=== PATIENT | female | born 1990 | race Caucasian/White ===

== ENCOUNTER 2016-08-10 20:18 | Emergency (ER) | payer OTHER ==
[~2016-08-10 20:18] MED LIST: CEPH-264 PO
[2016-08-10 21:17] LABS: BILIRUBIN,URINE NEGATIVE (NEG); GLUCOSE,URINE NEGATIVE (NEG); NITRITE,URINE NEGATIVE (NEG); PH,URINE 6.5; PROTEIN,URINE NEGATIVE (NEG-TRACE)
[2016-08-10 21:26] LABS: BACTERIA,URINE FEW /HPF (0-FEW); RBC,URINE 0 /HPF (0-2); SQUAMOUS EPITHELIAL CELL,UR MANY /LPF; WBC,URINE 0 /HPF (0-4)
[2016-08-10] MEDS ORDERED: IV NORMAL SALINE 1000ML BAG 1,000 ML IV ONE (21:30)
[2016-08-10] MEDS ORDERED: KETOROLAC TROMETHAMINE 30 MG/ML SYRINGE. IV ONE (21:30)
[2016-08-10] MEDS ORDERED: ONDANSETRON PF 4 MG/2 ML VIAL. IV ONE (21:30)
[2016-08-10 21:41] LABS: BASO # 0.1 x10^3/uL (0.0-0.2); BASO % 1 % (0-3); EOS % 2 % (0-3); HEMATOCRIT 37.1 % (36.0-47.0); HEMOGLOBIN 12.1 g/dL (12.0-15.5); LYMPH # 3.5 x10^3/uL (1.0-4.8); LYMPH % 33 % (24-48); MEAN CORPUSCULAR HEMOGLOBIN 27 pg (25-35); MEAN CORPUSCULAR HGB CONC 33 g/dL (31-37); MEAN CORPUSCULAR VOLUME 82 fL (79-100); MONO % 9 % (0-9); NEUT % 55 % (31-73); PLATELET COUNT 296 x10^3/uL (140-400); RED BLOOD COUNT 4.52 x10^6/uL (3.50-5.40); RED CELL DISTRIBUTION WIDTH 15.7 % (11.5-14.5); WHITE BLOOD COUNT 10.5 x10^3/uL (4.0-11.0)
[2016-08-10 21:54] LABS: CALCIUM 8.9 mg/dL (8.5-10.1); CREATININE 0.8 mg/dL (0.6-1.0); POTASSIUM 3.9 mmol/L (3.5-5.1)
--- NOTE | 2016-08-10 22:04 | RAD ---
PROCEDURE CT abdomen and pelvis without intravenous contrast. HISTORY Severe right flank pain for [address] of the abdomen and pelvis was performed without intravenous or oral contrast. Exposure: One or more of the following individualized dose reduction techniques were utilized for this examination: 1. Automated exposure control. 2. Adjustment of the mA and/or kV according to patient size. 3. Use of iterative reconstruction technique. COMPARISON CT abdomen pelvis from this [facility] August 03, 2016. FINDINGS Evaluation of solid organs is limited by lack of intravenous contrast. Evaluation of enteric structures may be limited by lack of oral contrast. Liver, spleen, pancreas, gallbladder, and bilateral adrenal glands are unremarkable. Bilateral kidneys and ureters free of stone or obstruction. No bowel obstruction or inflammation is identified. Appendix is without inflammation. Urinary bladder is unremarkable. Uterus is unremarkable. Right ovary demonstrates 3.4 centimeter cyst. IMPRESSION 1. No acute inflammatory process identified in the abdomen or pelvis. No evidence of urinary stone. 2. Right ovarian cyst measuring 3.4 centimeters. If there is concern for torsion, pelvic ultrasound could be performed. Electronically signed by: Sherwin Osborn MD (Aug 10, 2016 22:02:29)
[2016-08-10 22:32] VITALS: BP 110/60
--- NOTE | 2016-08-10 22:38 | PHYS DOC ---
Past Medical History Past Medical History: No Pertinent History Past Surgical History: , Other Additional Past Surgical Histo: [place] teeth removed. Alcohol Use: None Drug Use: None Adult General Chief Complaint Chief Complaint: ABDOMINAL PAIN HPI HPI 26-year-old female who's had worsening right-sided flank pain for the last week that does radiate somewhat into her right lower quadrant. She denies any dysuria or hematuria. She states she vomited multiple times today and this is what concerned her. She states she has history of 1 urinary stone in the past that pain felt different than this pain. She denies any vaginal bleeding. She raters her pain a 7 out of 10 localized primarily to the right flank. Review of Systems Review of Systems Constitutional: Denies fever or chills [] Eyes: Denies change in visual acuity, redness, or eye pain [] HENT: Denies nasal congestion or sore throat [] Respiratory: Denies cough or shortness of breath [] Cardiovascular: No additional information not addressed in HPI [] GI: Denies abdominal pain, nausea, vomiting, bloody stools or diarrhea [] : Denies dysuria or hematuria [] Musculoskeletal: Denies back pain or joint pain [] Integument: Denies rash or skin lesions [] Neurologic: Denies headache, focal weakness or sensory changes [] Endocrine: Denies polyuria or polydipsia [] Current Medications Current Medications Current Medications Medications (Trade) Dose Ordered Sig/[facility] Start Time Stop Time Status Last Admin Dose Admin Fentanyl Citrate (Fentanyl 2ml Vial) 50 mcg 1X ONCE 08/10/16 23:00 08/10/16 23:01 DC 08/10/16 22:46 50 MCG Ketorolac Tromethamine (Toradol) 30 mg 1X ONCE 08/10/16 21:30 08/10/16 21:31 DC 08/10/16 21:52 30 MG Ondansetron HCl (Zofran) 4 mg 1X ONCE 08/10/16 21:30 08/10/16 21:31 DC 08/10/16 21:51 4 MG Sodium Chloride (Iv Sodium Chloride 0.9% 1000ml Bag) 1,000 ml @ 1,000 mls/hr 1X ONCE 08/10/16 21:30 08/10/16 22:29 DC 08/10/16 21:50 1,000 MLS/HR Allergies Allergies Allergies Coded Allergies Type Severity Reaction Last Updated Verified adhesive Allergy Intermediate REDNESS, RASH 12/17/15 Yes Physical Exam Physical Exam Constitutional: Well developed, well nourished, no acute distress, non-toxic appearance. [] HENT: Normocephalic, atraumatic, bilateral external ears normal, oropharynx moist, no oral exudates, nose normal. [] Eyes: PERRLA, EOMI, conjunctiva normal, no discharge. [] Neck: Normal range of motion, no tenderness, supple, no stridor. [] Cardiovascular:Heart rate regular rhythm, no murmur [] Lungs & Thorax: Bilateral breath sounds clear to auscultation [] Abdomen: Bowel sounds normal, soft, RLQ tenderness, no masses, no pulsatile masses. [] Skin: Warm, dry, no erythema, no rash. [] Back: No tenderness, right CVA tenderness. [] Extremities: No tenderness, no cyanosis, no clubbing, ROM intact, no edema. [] Neurologic: Alert and oriented X 3, normal motor function, normal sensory function, no focal deficits noted. [] Psychologic: Affect normal, judgement normal, mood normal. [] Current Patient Data Vital Signs Vital Signs Date Time Temp Pulse Resp B/P Pulse Ox O2 Delivery O2 Flow Rate FiO2 08/10/16 22:46 15 97 08/10/16 22:32 66 110/60 Room Air 08/10/16 20:28 97.6 97.6 Lab Values Laboratory Tests Test 08/10/16 20:15 08/10/16 20:48 08/10/16 21:08 POC Urine HCG, Qualitative Hcg negative (Negative) White Blood Count 10.5x10^3/uL (4.0-11.0) Red Blood Count 4.52x10^6/uL (3.50-5.40) Hemoglobin 12.1g/dL (12.0-15.5) Hematocrit 37.1% (36.0-47.0) Mean Corpuscular Volume 82fL (79-100) Mean Corpuscular Hemoglobin 27pg (25-35) Mean Corpuscular Hemoglobin Concent 33g/dL (31-37) Red Cell Distribution Width 15.7% (11.5-14.5) H Platelet Count 296x10^3/uL (140-400) Neutrophils (%) (Auto) 55% (31-73) Lymphocytes (%) (Auto) 33% (24-48) Monocytes (%) (Auto) 9% (0-9) Eosinophils (%) (Auto) 2% (0-3) Basophils (%) (Auto) 1% (0-3) Neutrophils # (Auto) 5.8x10^3uL (1.8-7.7) Lymphocytes # (Auto) 3.5x10^3/uL (1.0-4.8) Monocytes # (Auto) 1.0x10^3/uL (0.0-1.1) Eosinophils # (Auto) 0.3x10^3/uL (0.0-0.7) Basophils # (Auto) 0.1x10^3/uL (0.0-0.2) Sodium Level 144mmol/L (136-145) Potassium Level 3.9mmol/L (3.5-5.1) Chloride Level 107mmol/L (98-107) Carbon Dioxide Level 25mmol/L (21-32) Anion Gap 12 (6-14) Blood Urea Nitrogen 11mg/dL (7-20) Creatinine 0.8mg/dL (0.6-1.0) Estimated GFR (Cockcroft-Gault) 86.0 Glucose Level 87mg/dL (70-99) Calcium Level 8.9mg/dL (8.5-10.1) Urine Collection Type Void Urine Color Yellow Urine Clarity Cloudy Urine pH 6.5 Urine Specific [place] 1.025 Urine Protein Negativemg/dL (NEG-TRACE) Urine Glucose (UA) Negativemg/dL (NEG) Urine Ketones (Stick) Negativemg/dL (NEG) Urine Blood Negative (NEG) Urine Nitrite Negative (NEG) Urine Bilirubin Negative (NEG) Urine Urobilinogen Dipstick 1.0mg/dL (0.2 mg/dL) Urine Leukocyte Esterase Negative (NEG) Urine RBC 0/HPF (0-2) Urine WBC 0/HPF (0-4) Urine Squamous Epithelial Cells Many/LPF Urine Bacteria Few/HPF (0-FEW) Urine Mucus Marked/LPF Laboratory Tests 08/10/16 20:48 Laboratory Tests 08/10/16 20:48 EKG EKG [] Radiology/Procedures Radiology/Procedures CT of the abdomen/pelvis without contrast demonstrated the following: Evaluation of solid organs is limited by lack of intravenous contrast. Evaluation of enteric structures may be limited by lack of oral contrast. Liver, spleen, pancreas, gallbladder, and bilateral adrenal glands are unremarkable. Bilateral kidneys and ureters free of stone or obstruction. No bowel obstruction or inflammation is identified. Appendix is without inflammation. Urinary bladder is unremarkable. Uterus is unremarkable. Right ovary demonstrates 3.4 centimeter cyst. Transvaginal OB ultrasound demonstrates the following: FINDINGS Uterus measures 7.7 centimeters in length. No uterine masses are identified. Endometrial thickness is 4 millimeters, within normal limits. The right ovary measures 3.4 x 3.8 x 3.6 centimeters and demonstrates 3.2 centimeter cyst. Left ovary measures 2.2 x 3.5 x 2.2 centimeters and is unremarkable. Both ovaries demonstrate normal vascular flow upon Doppler interrogation and are without evidence of torsion. IMPRESSION Functional right ovarian cyst. No evidence of ovarian torsion. Course & Med Decision Making Course & Med Decision Making Pertinent Labs and Imaging studies reviewed. (See chart for details) 26-year-old female has a CT of her abdomen and pelvis is negative for any acute abnormality other than a right ovarian cyst. They are recommending a pelvic ultrasound further clarify this and this will be ordered. Her laboratory workup is unremarkable. Her pain is not controlled with Toradol and I ordered her fentanyl. She has not actively vomited while here in the department. Her laboratory workup is unremarkable. Her transvaginal ultrasound demonstrates continued demonstration of her right ovarian cyst with no evidence of acute torsion. I will be discharging her with a course of [place] and Zofran for ovarian cyst pain with instruction to follow up with her primary doctor in the next 2-3 days for symptom resolution. Dragon Disclaimer Dragon Disclaimer This electronic medical record was generated, in whole or in part, using a voice recognition dictation system. Departure Departure Impression: Primary Impression: Abdominal pain Additional Impression: Ovarian cyst Disposition: 01 HOME, SELF-CARE Admitting Physician: Other Condition: STABLE Referrals: NO PCP (PCP) Patient Instructions: Ovarian Cyst, [id number] Additional Instructions: Please take your pain medication as prescribed and follow up with your primary doctor in the next 2-3 days. Return to the ER if you develop any worsening of your symptoms. Scripts Ondansetron Hcl (Zofran)4 Mg Tablet4 Mg PO BID PRN NAUSEA/VOMITING #10 TAB Prov:ARABELLA MÁRQUEZ DO 08/10/16 Hydrocodone/Apap 5-325 ([place] 5-325 Tablet)1 Each Tablet1 Tab PO PRN Q6HRS PRN PAIN #10 TAB Prov:ARABELLA MÁRQUEZ DO 08/10/16 Problem Qualifiers ARABELLA MÁRQUEZ DO Aug 10, 2016 22:38
[2016-08-10] MEDS ORDERED: FENTANYL PF 100 MCG/2 ML VIAL. IV ONE (23:00)
--- NOTE | 2016-08-10 23:24 | RAD ---
PROCEDURE Pelvis ultrasound. HISTORY Right lower quadrant pain for 1 week. Four months . TECHNIQUE Transabdominal imaging was performed. COMPARISON CT abdomen pelvis August 10, 2016. FINDINGS Uterus measures 7.7 centimeters in length. No uterine masses are identified. Endometrial thickness is 4 millimeters, within normal limits. The right ovary measures 3.4 x 3.8 x 3.6 centimeters and demonstrates 3.2 centimeter cyst. Left ovary measures 2.2 x 3.5 x 2.2 centimeters and is unremarkable. Both ovaries demonstrate normal vascular flow upon Doppler interrogation and are without evidence of torsion. IMPRESSION Functional right ovarian cyst. No evidence of ovarian torsion. Electronically signed by: Sherwin Osborn MD (Aug 10, 2016 23:22:55)
[2016-08-10] MEDS ORDERED: ONDA4TAB7 PO (23:35)
[2016-08-10] MEDS ORDERED: HYDR-971 PO (23:35)
== END 2016-08-11 00:10 | disposition home or self-care (01) ==
LOC: ER 20:18
DX: N83.201 Unspecified ovarian cyst, right side (principal); Z98.890 Other specified postprocedural states; Z88.8 Allergy status to other drugs, medicaments and biological substances
CPT/HCPCS: 36415; 74176; 76856; 80048; 81001; 81025; 85027; 96361; 96374; 96375; 99285; J1885; J2405; J3010; J7030

== ENCOUNTER → 2016-09-02 | Outpatient (CLI) | payer OTHER ==
[2016-08-10 22:32] VITALS: BP 110/60
[~2016-09-02] MED LIST changes: +HYDR-971 PO; +ONDA4TAB7 PO
--- NOTE | 2016-09-02 12:20 | KCIC ---
PROCEDURE MR of the right hip HISTORY Right hip pain for a few months. No known injury. COMPARISON None TECHNIQUE Routine multiplanar sequences are obtained. FINDINGS No bone lesion or acute fracture. No marrow edema. No femoral head osteonecrosis. No evidence of a labral tear. No acute articular cartilage defect. No significant joint effusion. No evidence of osteoarthritis. The gluteus minimus and gluteus medius tendon attachments are intact. The hamstring tendon attachment is intact. Iliopsoas tendon intact. No acute muscle injury. No soft tissue fluid collection. Several small right inguinal lymph nodes are identified up to 15 mm diameter. Diagnostically limited large [id number] coronal survey sequence demonstrates no acute findings at the contralateral hip or elsewhere. IMPRESSION No evidence of acute abnormality or internal derangement. Electronically signed by: Sherwin Redman MD (Sep 02, 2016 12:18:47)
== END | disposition home or self-care (01) ==
LOC: KCIC MRI 10:54
PROVIDERS: ATTEND Family Medicine
DX: M25.551 Pain in right hip (principal)
CPT/HCPCS: 73721

== ENCOUNTER 2016-10-24 20:37 | Emergency (ER) | payer OTHER ==
[~2016-10-24] VITALS: Ht 160 cm; Wt 95.3 kg
[2016-10-24] MEDS ORDERED: IV NORMAL SALINE 1000ML BAG 1,000 ML IV SCH (21:31)
--- NOTE | 2016-10-24 21:36 | PHYS DOC ---
Past Medical History Past Medical History: No Pertinent History Past Surgical History: , Other Additional Past Surgical Histo: [place] teeth removed. Alcohol Use: None Drug Use: None Adult General Chief Complaint Chief Complaint: ABDOMINAL PAIN HPI HPI Patient is a 26 year old female who presents with complaint of abdominal pain and vomiting. Patient states her symptoms have been present for the past week. Patient states that her pain is intermittent, sharp, and currently rates it as 8 out of 10. Patient states that she took Tylenol earlier today with no relief in symptoms. The patient states that she has had 6 months ago but no other abdominal surgeries. Patient denies any significant medical problems. Patient denies any associated fevers. Patient states that she has had difficulty eating due to vomiting. Patient states that she has been tolerating liquids and fruit states she is unable to tolerate protein or vegetables. Patient states that her pain is localized to her lower abdomen and radiates bilaterally. Patient does admit to increased frequency of urination. Review of Systems Review of Systems Constitutional: Denies fever or chills [] Eyes: Denies change in visual acuity, redness, or eye pain [] HENT: Denies nasal congestion or sore throat [] Respiratory: Denies cough or shortness of breath [] Cardiovascular: Denies chest pain or edema [] GI: Abdominal pain, nausea, vomiting, denies bloody stools or diarrhea [] : Urinary frequency, denies dysuria [] Musculoskeletal: Denies back pain or joint pain [] Integument: Denies rash or skin lesions [] Neurologic: Denies headache, focal weakness or sensory changes [] Current Medications Current Medications Current Medications Medications (Trade) Dose Ordered Sig/[facility] Start Time Stop Time Status Last Admin Dose Admin Famotidine (Pepcid) 20 mg 1X ONCE 10/24/16 22:00 10/24/16 22:01 DC 10/24/16 21:48 20 MG Fentanyl Citrate (Fentanyl 2ml Vial) 50 mcg PRN Q15MIN PRN 10/24/16 21:45 10/25/16 21:44 10/24/16 21:47 50 MCG Ondansetron HCl (Zofran) 4 mg 1X ONCE 10/24/16 22:00 10/24/16 22:01 DC 10/24/16 21:47 4 MG Sodium Chloride 1,000 ml @ 1,000 mls/hr Q1H 10/24/16 21:31 10/24/16 22:30 DC 10/24/16 21:48 1,000 MLS/HR Allergies Allergies Allergies Coded Allergies Type Severity Reaction Last Updated Verified adhesive Allergy Intermediate REDNESS, RASH 12/17/15 Yes Physical Exam Physical Exam Constitutional: Alert, obese, afebrile, no acute distress. [] HENT: Normocephalic, atraumatic, bilateral external ears normal, oropharynx moist, no oral exudates, nose normal. [] Eyes: PERRLA, EOMI, conjunctiva normal, no discharge. [] Neck: Normal range of motion, no tenderness, supple, no stridor. [] Cardiovascular:Heart rate regular rhythm, no murmur [] Lungs & Thorax: Bilateral breath sounds clear to auscultation [] Abdomen: Bowel sounds normal, soft, suprapubic tenderness to palpation, no guarding or rebound tenderness, no masses, no pulsatile masses. [] Skin: Warm, dry, no erythema, no rash. [] Back: No tenderness, no CVA tenderness. [] Extremities: No tenderness, no cyanosis, no clubbing, ROM intact, no edema. [] Neurologic: Alert and oriented X 3, normal motor function, normal sensory function, no focal deficits noted. [] Current Patient Data Vital Signs Vital Signs Date Time Temp Pulse Resp B/P (MAP) Pulse Ox O2 Delivery O2 Flow Rate FiO2 10/24/16 20:45 98.3 72 16 139/69 (92) 100 Room Air 98.3 Lab Values Laboratory Tests Test 10/24/16 19:56 10/24/16 20:45 10/24/16 21:10 POC Urine HCG, Qualitative Hcg negative (Negative) Urine Collection Type Unknown Urine Color Yellow Urine Clarity Clear Urine pH 6.5 Urine Specific [place] 1.020 Urine Protein Negative mg/dL (NEG-TRACE) Urine Glucose (UA) Negative mg/dL (NEG) Urine Ketones (Stick) Negative mg/dL (NEG) Urine Blood Negative (NEG) Urine Nitrite Negative (NEG) Urine Bilirubin Negative (NEG) Urine Urobilinogen Dipstick 1.0 mg/dL (0.2 mg/dL) Urine Leukocyte Esterase Negative (NEG) Urine RBC 0 /HPF (0-2) Urine WBC 0 /HPF (0-4) Urine Squamous Epithelial Cells Mod /LPF Urine Bacteria Few /HPF (0-FEW) Urine Mucus Marked /LPF White Blood Count 10.3 x10^3/uL (4.0-11.0) Red Blood Count 4.27 x10^6/uL (3.50-5.40) Hemoglobin 12.3 g/dL (12.0-15.5) Hematocrit 36.0 % (36.0-47.0) Mean Corpuscular Volume 84 fL (79-100) Mean Corpuscular Hemoglobin 29 pg (25-35) Mean Corpuscular Hemoglobin Concent 34 g/dL (31-37) Red Cell Distribution Width 15.4 % (11.5-14.5) H Platelet Count 288 x10^3/uL (140-400) Neutrophils (%) (Auto) 54 % (31-73) Lymphocytes (%) (Auto) 35 % (24-48) Monocytes (%) (Auto) 8 % (0-9) Eosinophils (%) (Auto) 2 % (0-3) Basophils (%) (Auto) 1 % (0-3) Neutrophils # (Auto) 5.6 x10^3uL (1.8-7.7) Lymphocytes # (Auto) 3.6 x10^3/uL (1.0-4.8) Monocytes # (Auto) 0.8 x10^3/uL (0.0-1.1) Eosinophils # (Auto) 0.2 x10^3/uL (0.0-0.7) Basophils # (Auto) 0.1 x10^3/uL (0.0-0.2) Sodium Level 143 mmol/L (136-145) Potassium Level 4.0 mmol/L (3.5-5.1) Chloride Level 106 mmol/L (98-107) Carbon Dioxide Level 27 mmol/L (21-32) Anion Gap 10 (6-14) Blood Urea Nitrogen 12 mg/dL (7-20) Creatinine 0.9 mg/dL (0.6-1.0) Estimated GFR (Cockcroft-Gault) 75.1 BUN/Creatinine Ratio 13 (6-20) Glucose Level 92 mg/dL (70-99) Calcium Level 8.9 mg/dL (8.5-10.1) Total Bilirubin 0.2 mg/dL (0.2-1.0) Aspartate Amino Transferase (AST) 13 U/L (15-37) L Alanine Aminotransferase (ALT) 22 U/L (14-59) Alkaline Phosphatase 69 U/L (46-116) Total Protein 7.8 g/dL (6.4-8.2) Albumin 3.4 g/dL (3.4-5.0) Albumin/Globulin Ratio 0.8 (1.0-1.7) L Lipase 158 U/L (73-393) Laboratory Tests 10/24/16 21:10 Laboratory Tests 10/24/16 21:10 Microbiology 10/24/16 Wet Prep - Final, Complete EKG EKG Not performed [] Radiology/Procedures Radiology/Procedures Two-view abdominal x-rays interpreted by me: Nonobstructive bowel gas pattern, retained gas through colon, No free air under the diaphragm [] Course & Med Decision Making Course & Med Decision Making Pertinent Labs and Imaging studies reviewed. (See chart for details) The patient's emergency department workup is unremarkable at this time. Patient was treated with IV fluids, fentanyl, and Zofran. Spoke with the patient regarding results of testing and lack of findings consistent with acute surgical abdomen at this time. The patient will be referred to Dr. Castillo of gastroenterology for follow-up in one to 2 weeks if symptoms are not improving. Patient will be discharged with prescriptions for Bentyl, ibuprofen, Pepcid, and Zofran. Advised return emergency department for any worsening symptoms. Patient voiced understanding and in agreement with treatment plan. Dragon Disclaimer Dragon Disclaimer This electronic medical record was generated, in whole or in part, using a voice recognition dictation system. Departure Departure Impression: Primary Impression: Abdominal pain Additional Impression: Nausea & vomiting Disposition: 01 HOME, SELF-CARE Condition: IMPROVED Referrals: NO PCP (PCP) Patient Instructions: Abdominal Pain (Nonspecific), Nausea and Vomiting Additional Instructions: Follow-up in 3-4 days with your primary doctor for reevaluation. Scheduled appointment in one to [address] Castillo of gastroenterology if symptoms do not resolve. Return to the emergency department for any worsening symptoms. Scripts Dicyclomine Hcl (BENTYL) 10 Mg Capsule 1 CAP PO TID, #30 CAP 0 Refills Prov: CALVIN TAVERAS MD 10/24/16 Famotidine (PEPCID) 20 Mg Tablet 20 MG PO BID, #30 TAB Prov: CALVIN TAVERAS MD 10/24/16 Ondansetron (ZOFRAN ODT) 4 Mg Tab.rapdis 1 TAB SL Q8HRS Y for NAUSEA/VOMITING, #15 TAB Prov: CALVIN TAVERAS MD 10/24/16 Ibuprofen (IBUPROFEN) 600 Mg Tablet 600 MG PO Q6HRS Y for PAIN, #30 TAB Prov: CALVIN TAVERAS MD 10/24/16 Problem Qualifiers Primary Impression: Abdominal pain Abdominal location: lower abdomen, unspecified Qualified Codes: R10.30 - Lower abdominal pain, unspecified Additional Impression: Nausea & vomiting Vomiting type: unspecified Vomiting Intractability: non-intractable Qualified Codes: R11.2 - Nausea with vomiting, unspecified CALVIN TAVERAS MD October 24, 2016 21:36
[2016-10-24 21:41] LABS: BILIRUBIN,URINE NEGATIVE (NEG); GLUCOSE,URINE NEGATIVE (NEG); NITRITE,URINE NEGATIVE (NEG); PH,URINE 6.5; PROTEIN,URINE NEGATIVE (NEG-TRACE)
[2016-10-24] MEDS: fentaNYL PF VIAL 100 MCG/2 ML VIAL IV PRN ×2 (21:47→22:39)
[2016-10-24 21:49] LABS: BASO # 0.1 x10^3/uL (0.0-0.2); BASO % 1 % (0-3); EOS % 2 % (0-3); HEMOGLOBIN 12.3 g/dL (12.0-15.5); LYMPH # 3.6 x10^3/uL (1.0-4.8); LYMPH % 35 % (24-48); MEAN CORPUSCULAR HEMOGLOBIN 29 pg (25-35); MEAN CORPUSCULAR HGB CONC 34 g/dL (31-37); MEAN CORPUSCULAR VOLUME 84 fL (79-100); MONO % 8 % (0-9); NEUT % 54 % (31-73); PLATELET COUNT 288 x10^3/uL (140-400); RED BLOOD COUNT 4.27 x10^6/uL (3.50-5.40); RED CELL DISTRIBUTION WIDTH 15.4 % (11.5-14.5); WHITE BLOOD COUNT 10.3 x10^3/uL (4.0-11.0)
[2016-10-24 21:50] LABS: CALCIUM 8.9 mg/dL (8.5-10.1); CREATININE 0.9 mg/dL (0.6-1.0); GFR 75.1
[2016-10-24 21:55] LABS: BACTERIA,URINE FEW /HPF (0-FEW); RBC,URINE 0 /HPF (0-2); SQUAMOUS EPITHELIAL CELL,UR MOD /LPF; WBC,URINE 0 /HPF (0-4)
[2016-10-24 21:56] LABS: ALBUMIN 3.4 g/dL (3.4-5.0); ALBUMIN/GLOBULIN RATIO 0.8 (1.0-1.7); TOTAL BILIRUBIN 0.2 mg/dL (0.2-1.0); TOTAL PROTEIN 7.8 g/dL (6.4-8.2)
[2016-10-24] MEDS ORDERED: ONDANSETRON PF 4 MG/2 ML VIAL. IV ONE (22:00)
[2016-10-24] MEDS ORDERED: FAMOTIDINE 20 MG/2 ML VIAL IVP ONE (22:00)
[2016-10-24] MEDS ORDERED: IBUP-1007 PO (22:44)
[2016-10-24] MEDS ORDERED: FAMO-63 PO (22:44)
[2016-10-24] MEDS ORDERED: DICY10CA53 PO (22:44)
[2016-10-24] MEDS ORDERED: ONDA4TAB10 SL (22:44)
[2016-10-24 22:47] VITALS: BP 106/73
--- NOTE | 2016-10-25 07:56 | RAD ---
Indication abdominal pain. Supine and upright films of the abdomen were obtained. Note is made of a CT examination 08/10/2016. The visualized lung bases appear grossly clear. No free air is identified. The abdominal gas pattern is normal. There are calcifications in the left pelvis compatible with phleboliths. Visualized bony structures appear grossly intact. IMPRESSION: No acute or significant finding seen on plain films of the abdomen
== END 2016-10-24 23:05 | disposition home or self-care (01) ==
LOC: ER 20:37
DX: R10.30 Lower abdominal pain, unspecified (principal); R11.2 Nausea with vomiting, unspecified; Z91.048 Other nonmedicinal substance allergy status
CPT/HCPCS: 36415; 74020; 80053; 81001; 83690; 84703; 85027; 96361; 96374; 96375; 96376; 99285; J2405; J3010; J7030; Q0111; S0028; 81025

== ENCOUNTER 2016-11-20 22:02 | Emergency (ER) | payer OTHER ==
[~2016-11-20] VITALS: Ht 160 cm; Wt 95.3 kg
[~2016-11-20 22:02] MED LIST changes: +DICY10CA53 PO; +FAMO-63 PO; +IBUP-1007 PO; +ONDA4TAB10 SL
[2016-11-20 22:29] LABS: BILIRUBIN,URINE NEGATIVE (NEG); GLUCOSE,URINE NEGATIVE (NEG); NITRITE,URINE NEGATIVE (NEG); PROTEIN,URINE NEGATIVE (NEG-TRACE)
[2016-11-20 22:32] LABS: NEG OBC UR NEG; POS OBC UR POS
[2016-11-20 22:35] LABS: BACTERIA,URINE FEW /HPF (0-FEW); RBC,URINE 0 /HPF (0-2); SQUAMOUS EPITHELIAL CELL,UR MOD /LPF; WBC,URINE 0 /HPF (0-4)
[2016-11-20 22:37] LABS: BASO # 0.1 x10^3/uL (0.0-0.2); BASO % 1 % (0-3); EOS % 1 % (0-3); HEMATOCRIT 36.9 % (36.0-47.0); HEMOGLOBIN 11.9 g/dL (12.0-15.5); LYMPH # 3.1 x10^3/uL (1.0-4.8); LYMPH % 31 % (24-48); MEAN CORPUSCULAR HEMOGLOBIN 28 pg (25-35); MEAN CORPUSCULAR HGB CONC 32 g/dL (31-37); MEAN CORPUSCULAR VOLUME 86 fL (79-100); MONO % 10 % (0-9); NEUT % 57 % (31-73); PLATELET COUNT 281 x10^3/uL (140-400); RED BLOOD COUNT 4.32 x10^6/uL (3.50-5.40); WHITE BLOOD COUNT 10.2 x10^3/uL (4.0-11.0)
[2016-11-20 22:44] LABS: BARBITURATES NEG (NEG); BENZODIAZEPINES NEG (NEG); CANNABINOIDS NEG (NEG); COCAINE NEG (NEG); METHADONE NEG (NEG); OPIATES NEG (NEG); PHENCYCLIDINE NEG (NEG)
[2016-11-20 22:44] LABS: CALCIUM 8.5 mg/dL (8.5-10.1); CREATININE 0.8 mg/dL (0.6-1.0)
[2016-11-20 22:50] LABS: ALBUMIN 3.4 g/dL (3.4-5.0); ALBUMIN/GLOBULIN RATIO 0.8 (1.0-1.7); TOTAL BILIRUBIN 0.1 mg/dL (0.2-1.0); TOTAL PROTEIN 7.8 g/dL (6.4-8.2)
[2016-11-20] MEDS ORDERED: PROCHLORPERAZINE 10 MG/2 ML VIAL. IV ONE (23:00)
[2016-11-20] MEDS ORDERED: diphenhydrAMINE 50 MG/ML VIAL IVP ONE (23:00)
[2016-11-20] MEDS ORDERED: KETOROLAC 15 MG/ML VIAL. IV ONE (23:00)
[2016-11-20] MEDS ORDERED: IV NORMAL SALINE 1000ML BAG 1,000 ML IV SCH (23:00)
--- NOTE | 2016-11-20 23:20 | ED.ADGEN ---
Past Medical History Past Medical History: No Pertinent History Past Surgical History: , Other Additional Past Surgical Histo: [place] teeth removed. Alcohol Use: None Drug Use: None Adult General Chief Complaint Chief Complaint: HEADACHE HPI HPI Patient is a 26 year old woman, history of ovarian cysts, who presents to the emergency department with a complaint of frontal headache, and left lower quadrant abdominal pain. Patient states that his began earlier today. She states that she's taken 2 doses of acetaminophen at home without relief. She states that she's had similar headaches previously but not as persistent. Denies any vision changes, any weakness emesis or tingling, any nausea or vomiting, any neck pain, any injuries, any fevers or chills. Denies any urinary complaints. Does not feel like previous ovarian cyst type pain. She states that the pain is located the left lower quadrant, sharp and stabbing, has been intermittent. No history of surgeries, aside from a , last bowel was earlier today and was normal. Patient has her six-month old son present with her in the emergency department. Review of Systems Review of Systems Constitutional: Denies fever or chills. [] Eyes: Denies change in visual acuity. [] HENT: Denies nasal congestion or sore throat. [] Respiratory: Denies cough or shortness of breath. [] Cardiovascular: Denies chest pain or edema. [] GI: Denies abdominal pain, nausea, vomiting, bloody stools or diarrhea. [] : Denies dysuria. [] Musculoskeletal: Denies back pain or joint pain. [] Integument: Denies rash. [] Neurologic: Denies focal weakness or sensory changes. [] Headache, left lower quadrant abdominal pain. Endocrine: Denies polyuria or polydipsia. [] Lymphatic: Denies swollen glands. [] Psychiatric: Denies depression or anxiety. [] Current Medications Current Medications Current Medications Medications (Trade) Dose Ordered Sig/Shruthi Start Time Stop Time Status Last Admin Dose Admin Diphenhydramine HCl (Benadryl) 25 mg 1X ONCE 11/20/16 23:00 11/20/16 23:01 DC 11/20/16 23:00 25 MG Ketorolac Tromethamine (Toradol) 10 mg 1X ONCE 11/20/16 23:00 11/20/16 23:01 DC 11/20/16 23:01 10 MG Prochlorperazine Edisylate (Compazine) 10 mg 1X ONCE 11/20/16 23:00 11/20/16 23:01 DC 11/20/16 23:01 10 MG Sodium Chloride 1,000 ml @ 1,000 mls/hr Q1H 11/20/16 23:00 11/20/16 23:59 11/20/16 22:59 1,000 MLS/HR Allergies Allergies Allergies Coded Allergies Type Severity Reaction Last Updated Verified adhesive Allergy Intermediate REDNESS, RASH 12/17/15 Yes Physical Exam Physical Exam Constitutional: Well developed, well nourished, no acute distress, non-toxic appearance. [] HENT: Normocephalic, atraumatic, bilateral external ears normal, oropharynx moist, no oral exudates, nose normal. [] Eyes: PERRLA, EOMI, conjunctiva normal, no discharge. [] Neck: Normal range of motion, no tenderness, supple, no stridor. [] Cardiovascular:Heart rate regular rhythm, no murmur [] Lungs & Thorax: Bilateral breath sounds clear to auscultation [] Abdomen: Bowel sounds normal, soft, no tenderness, no masses, no pulsatile masses. [] Skin: Warm, dry, no erythema, no rash. [] Back: No tenderness, no CVA tenderness. [] Extremities: No tenderness, no cyanosis, no clubbing, ROM intact, no edema. [] Neurologic: Alert and oriented X 3, normal motor function, normal sensory function, no focal deficits noted. [] Psychologic: Affect normal, judgement normal, mood normal. [] Current Patient Data Vital Signs Vital Signs Date Time Temp Pulse Resp B/P (MAP) Pulse Ox O2 Delivery O2 Flow Rate FiO2 11/20/16 22:09 98.2 78 18 138/62 (87) 97 Room Air 98.2 Lab Values Laboratory Tests Test 11/20/16 22:10 11/20/16 22:15 Urine Collection Type Void Urine Color Yellow Urine Clarity Cloudy Urine pH 7.0 Urine Specific [place] 1.020 Urine Protein Negative mg/dL (NEG-TRACE) Urine Glucose (UA) Negative mg/dL (NEG) Urine Ketones (Stick) Negative mg/dL (NEG) Urine Blood Negative (NEG) Urine Nitrite Negative (NEG) Urine Bilirubin Negative (NEG) Urine Urobilinogen Dipstick 1.0 mg/dL (0.2 mg/dL) Urine Leukocyte Esterase Negative (NEG) Urine RBC 0 /HPF (0-2) Urine WBC 0 /HPF (0-4) Urine Squamous Epithelial Cells Mod /LPF Urine Amorphous Sediment Present /HPF Urine Bacteria Few /HPF (0-FEW) Urine Mucus Mod /LPF Urine Test Negative (NEG) Urine Opiates Screen Neg (NEG) Urine Methadone Screen Neg (NEG) Urine Barbiturates Neg (NEG) Urine Phencyclidine Screen Neg (NEG) Urine Amphetamine/Methamphetamine Neg (NEG) Urine Benzodiazepines Screen Neg (NEG) Urine Cocaine Screen Neg (NEG) Urine Cannabinoids Screen Neg (NEG) Urine Ethyl Alcohol Neg (NEG) White Blood Count 10.2 x10^3/uL (4.0-11.0) Red Blood Count 4.32 x10^6/uL (3.50-5.40) Hemoglobin 11.9 g/dL (12.0-15.5) L Hematocrit 36.9 % (36.0-47.0) Mean Corpuscular Volume 86 fL (79-100) Mean Corpuscular Hemoglobin 28 pg (25-35) Mean Corpuscular Hemoglobin Concent 32 g/dL (31-37) Red Cell Distribution Width 15.0 % (11.5-14.5) H Platelet Count 281 x10^3/uL (140-400) Neutrophils (%) (Auto) 57 % (31-73) Lymphocytes (%) (Auto) 31 % (24-48) Monocytes (%) (Auto) 10 % (0-9) H Eosinophils (%) (Auto) 1 % (0-3) Basophils (%) (Auto) 1 % (0-3) Neutrophils # (Auto) 5.8 x10^3uL (1.8-7.7) Lymphocytes # (Auto) 3.1 x10^3/uL (1.0-4.8) Monocytes # (Auto) 1.0 x10^3/uL (0.0-1.1) Eosinophils # (Auto) 0.1 x10^3/uL (0.0-0.7) Basophils # (Auto) 0.1 x10^3/uL (0.0-0.2) Sodium Level 140 mmol/L (136-145) Potassium Level 4.0 mmol/L (3.5-5.1) Chloride Level 105 mmol/L (98-107) Carbon Dioxide Level 26 mmol/L (21-32) Anion Gap 9 (6-14) Blood Urea Nitrogen 9 mg/dL (7-20) Creatinine 0.8 mg/dL (0.6-1.0) Estimated GFR (Cockcroft-Gault) 86.0 BUN/Creatinine Ratio 11 (6-20) Glucose Level 99 mg/dL (70-99) Calcium Level 8.5 mg/dL (8.5-10.1) Total Bilirubin 0.1 mg/dL (0.2-1.0) L Aspartate Amino Transferase (AST) 17 U/L (15-37) Alanine Aminotransferase (ALT) 27 U/L (14-59) Alkaline Phosphatase 72 U/L (46-116) Total Protein 7.8 g/dL (6.4-8.2) Albumin 3.4 g/dL (3.4-5.0) Albumin/Globulin Ratio 0.8 (1.0-1.7) L Lipase 152 U/L (73-393) Laboratory Tests 11/20/16 22:15 Laboratory Tests 11/20/16 22:15 Radiology/Procedures Radiology/Procedures Acute abdominal series: 3 view: Normal cardiopulmonary silhouette, no infiltrates, no effusions, no soft tissue or bone abdomen is identified. No free air. Patient with paucity of bowel gas, however noted to have stool throughout, with no evidence of dilated loops of bowel, air-fluid levels, or other evidence of obstruction or other abnormalities. As inserted by me. [] Course & Med Decision Making Course & Med Decision Making Pertinent Labs and Imaging studies reviewed. (See chart for details) Patient received IV fluids, Toradol, Compazine, and Benadryl in the emergency department. Laboratory studies and imaging does not reveal any evidence of concerning findings. On reevaluation, patient states she is feeling much better. Discussed with patient that her x-rays, also has no signs obstruction, are concerning for possible constipation, which could be contributory symptoms. We did discuss use of a high-fiber diet, and importance of stay well-hydrated. Patient voiced understanding and agreement with this plan. We discussed following up with her primary care provider, along with clear and detailed return instructions, and use of Fioricet. Patient voiced understanding and agreement with instructions and precautions. Discharged home with plan as above. Dragon Disclaimer Dragon Disclaimer This electronic medical record was generated, in whole or in part, using a voice recognition dictation system. Departure Impression: Primary Impression: Headache Additional Impressions: Constipation Abdominal pain Disposition: HOME, SELF-CARE Condition: IMPROVED Scripts Butalbital/Aspirin/Caffeine (FIORINAL 50-325-40 MG CAPSULE) 1 Each Capsule 1 EACH PO PRN Q6-8HRS Y for HEADACHE, #12 CAP Prov: SHAKIR LYN DO 11/20/16 Problem Qualifiers SHAKIR LYN DO Nov 20, 2016 23:20
[2016-11-20 23:30] VITALS: BP 111/58
[2016-11-20] MEDS ORDERED: BUTA1CAP31 PO (23:36)
--- NOTE | 2016-11-21 07:24 | RAD ---
Indication: Abdominal pain. Time of exam 2246 hours. No free air is identified. The bowel gas pattern is nonobstructed. No pathologic calcifications are seen. The lungs appear to be clear. Impression: No acute feature identified.
== END 2016-11-21 00:12 | disposition home or self-care (01) ==
LOC: ER 22:02
DX: R51 Headache (principal); K59.00 Constipation, unspecified; Z88.8 Allergy status to other drugs, medicaments and biological substances
CPT/HCPCS: 36415; 74022; 80053; 80305; 80320; 81001; 81025; 83690; 85027; 96361; 96374; 96375; 99285; J0780; J1200; J1885; J7030; G0481

== ENCOUNTER 2017-01-05 21:03 | Emergency (ER) | payer OTHER ==
[~2017-01-05] VITALS: Ht 160 cm; Wt 96.2 kg
[~2017-01-05 21:03] MED LIST changes: +BUTA1CAP31 PO
[2017-01-05 21:40] LABS: BILIRUBIN,URINE SMALL (NEG); GLUCOSE,URINE NEGATIVE (NEG); NITRITE,URINE NEGATIVE (NEG); PROTEIN,URINE NEGATIVE (NEG-TRACE)
[2017-01-05 21:50] LABS: BACTERIA,URINE MANY /HPF (0-FEW); RBC,URINE 0 /HPF (0-2); SQUAMOUS EPITHELIAL CELL,UR MANY /LPF; WBC,URINE OCC /HPF (0-4)
[2017-01-05] MEDS ORDERED: ONDANSETRON PF 4 MG/2 ML VIAL. ONE (21:55)
[2017-01-05] MEDS ORDERED: KETOROLAC TROMETHAMINE 30 MG/ML INJ. ONE (21:55)
[2017-01-05] MEDS ORDERED: ONDANSETRON PF 4 MG/2 ML VIAL. IV ONE (22:00)
[2017-01-05] MEDS ORDERED: KETOROLAC 15 MG/ML VIAL. IV ONE (22:00)
[2017-01-05] MEDS ORDERED: IV NORMAL SALINE 1000ML BAG 1,000 ML IV ONE (22:00)
[2017-01-05 22:01] LABS: BASO % 1 % (0-3); EOS % 1 % (0-3); HEMATOCRIT 38.3 % (36.0-47.0); HEMOGLOBIN 12.5 g/dL (12.0-15.5); LYMPH # 1.8 x10^3/uL (1.0-4.8); LYMPH % 28 % (24-48); MEAN CORPUSCULAR HEMOGLOBIN 28 pg (25-35); MEAN CORPUSCULAR HGB CONC 33 g/dL (31-37); MEAN CORPUSCULAR VOLUME 86 fL (79-100); MONO % 16 % (0-9); NEUT % 55 % (31-73); PLATELET COUNT 244 x10^3/uL (140-400); RED BLOOD COUNT 4.48 x10^6/uL (3.50-5.40); RED CELL DISTRIBUTION WIDTH 14.5 % (11.5-14.5); WHITE BLOOD COUNT 6.4 x10^3/uL (4.0-11.0)
[2017-01-05 22:11] LABS: CALCIUM 8.5 mg/dL (8.5-10.1); CREATININE 0.8 mg/dL (0.6-1.0); POTASSIUM 3.8 mmol/L (3.5-5.1)
[2017-01-05 22:17] LABS: ALBUMIN 3.5 g/dL (3.4-5.0); ALBUMIN/GLOBULIN RATIO 0.8 (1.0-1.7); TOTAL BILIRUBIN 0.1 mg/dL (0.2-1.0)
[2017-01-05 23:24] LABS: NEG OBC UR NEG; POS OBC UR POS
--- NOTE | 2017-01-05 23:59 | RAD ---
Indication: Left flank pain. Axial imaging through the abdomen and pelvis was performed without contrast. One or more of the following individualized dose reduction techniques were utilized for this examination: 1. Automated exposure control 2. Adjustment of the mA and/or kV according to patient size 3. Use of iterative reconstruction technique Comparison is made with prior exam from 08/10/2016. The lung bases are clear. There appears to be trace pericardial fluid present. No discrete liver mass is detected. The gallbladder is unremarkable. The pancreas and spleen are unremarkable. No adrenal mass is identified. No renal calculi or hydronephrosis is identified. The small and large bowel loops are normal caliber. There is a large amount of stool within the colon. There is no ascites. The bladder and uterus are unremarkable. IMPRESSION: 1. Trace pericardial fluid. 2. No evidence of urinary tract calculi or obstruction. 3. Moderate stool suggestive of constipation. Electronically signed by: Hermes Delgado MD (01/05/2017 11:56 PM) [facility]
--- NOTE | 2017-01-06 00:19 | PHYS DOC ---
Past Medical History Past Medical History: No Pertinent History Past Surgical History: Additional Past Surgical Histo: [place] teeth removed. Alcohol Use: Rarely Drug Use: None Adult General Chief Complaint Chief Complaint: ABDOMINAL PAIN HPI HPI Patient is a 26 year old female who presents here today complaining of abdominal pain and flank pain on the left side that's been on for quite a while. Patient reports no for at least a week. Patient reports that she has a history for ovarian cysts in the past. Patient reports that she saw her PCP today and told her that one of her cyst was a ruptured. Patient denies any fevers shakes chills. Patient reports she's had 3 episodes of vomiting today. Patient has any diarrhea. Patient denies any dysuria frequency urgency or vaginal discharge. Patient's last menstrual period was in October. She reports that the only surgery she's had the past with a . Patient denies any history of hypertension diabetes liver longer kidney problems. Patient does not smoke drink or do any drugs. Patient is not allergic to any medications. Patient reports she was able to eat earlier today without any difficulty. Denies any coffee-ground emesis or hematochezia. Patient denies any hematemesis or bright red blood per rectum. Patient's physical exam the ED significant for tenderness to palpation to her left lower quadrant and left flank. Patient has no rebound or guarding. Patient no psoas or obturator signs. Patient does not present with any signs or symptoms that will be consistent with an acute surgical abdomen. Review of systems: Constitutional: Denies fever or chills Eyes: Denies change in visual acuity, redness, or eye pain HENT: Denies nasal congestion or sore throat All other review systems are negative except as documented in the history of present illness portion. Physical exam: Constitutional: Well developed, well nourished, no acute distress, non-toxic appearance. HENT: Normocephalic, atraumatic, bilateral external ears normal, oropharynx moist, no oral exudates, nose normal. Eyes: PERRLA, EOMI, conjunctiva normal, no discharge. Neck: Normal range of motion, no tenderness, supple, no stridor Cardiovascular:Heart rate regular rhythm Lungs & Thorax: Bilateral breath sounds clear to auscultation Abdomen: Bowel sounds normal, soft, no tenderness, no masses, Skin: Warm, dry, no erythema, no rash. Back: No tenderness, no CVA tenderness. Extremities: No tenderness, no cyanosis, no clubbing, ROM intact, no edema. Neurologic: Alert and oriented X 3, normal motor function, normal sensory function, no focal deficits noted. Psychologic: Affect normal, judgement normal, mood normal. Patient is CT scan of her abdomen and pelvis did not reveal any acute pathology. There was no evidence of any hydronephrosis, kidney stones, bowel obstruction. There is a small amount of physiological fluid noted in the pelvis. Patient's CBC CMP and UA were unremarkable. While in the ER the patient was given a dose of Toradol and normal saline as well as Zofran. Patient's been resting in the ED without any further. Assessment and plan Abdominal pain without any peritoneal findings. Patient's clinically and hemodynamically stable. Patient's ER workup is unremarkable. Patient be discharged home with instructions to follow-up in the morning with her primary care physician. I have discussed with the patient that we will give her dose of Dulcolax here to assist her with her constipation and hopefully having a bowel movement might improve her pain. Current Medications Current Medications Current Medications Medications (Trade) Dose Ordered Sig/Shruthi Start Time Stop Time Status Last Admin Dose Admin Ketorolac Tromethamine (Toradol) 30 mg STK-MED ONCE 01/05/17 21:55 01/05/17 21:56 DC Ondansetron HCl (Zofran) 4 mg STK-MED ONCE 01/05/17 21:55 01/05/17 21:56 DC Sodium Chloride 1,000 ml @ 1,000 mls/hr 1X ONCE 01/05/17 22:00 01/05/17 22:59 DC 01/05/17 21:59 1,000 MLS/HR Allergies Allergies Allergies Coded Allergies Type Severity Reaction Last Updated Verified adhesive Allergy Intermediate REDNESS, RASH 12/17/15 Yes Current Patient Data Vital Signs Vital Signs Date Time Temp Pulse Resp B/P (MAP) Pulse Ox O2 Delivery O2 Flow Rate FiO2 01/05/17 23:44 68 18 100/60 (73) 99 Room Air 01/05/17 23:05 97.9 97.9 Lab Values Laboratory Tests Test 01/05/17 21:20 01/05/17 21:40 Urine Collection Type Unknown Urine Color Yellow Urine Clarity Clear Urine pH 6.0 Urine Specific [place] >=1.030 Urine Protein Negative mg/dL (NEG-TRACE) Urine Glucose (UA) Negative mg/dL (NEG) Urine Ketones (Stick) Negative mg/dL (NEG) Urine Blood Negative (NEG) Urine Nitrite Negative (NEG) Urine Bilirubin Small (NEG) Urine Urobilinogen Dipstick 1.0 mg/dL (0.2 mg/dL) Urine Leukocyte Esterase Negative (NEG) Urine RBC 0 /HPF (0-2) Urine WBC Occ /HPF (0-4) Urine Squamous Epithelial Cells Many /LPF Urine Bacteria Many /HPF (0-FEW) Urine Mucus Marked /LPF Urine Test Negative (NEG) White Blood Count 6.4 x10^3/uL (4.0-11.0) Red Blood Count 4.48 x10^6/uL (3.50-5.40) Hemoglobin 12.5 g/dL (12.0-15.5) Hematocrit 38.3 % (36.0-47.0) Mean Corpuscular Volume 86 fL (79-100) Mean Corpuscular Hemoglobin 28 pg (25-35) Mean Corpuscular Hemoglobin Concent 33 g/dL (31-37) Red Cell Distribution Width 14.5 % (11.5-14.5) Platelet Count 244 x10^3/uL (140-400) Neutrophils (%) (Auto) 55 % (31-73) Lymphocytes (%) (Auto) 28 % (24-48) Monocytes (%) (Auto) 16 % (0-9) H Eosinophils (%) (Auto) 1 % (0-3) Basophils (%) (Auto) 1 % (0-3) Neutrophils # (Auto) 3.5 x10^3uL (1.8-7.7) Lymphocytes # (Auto) 1.8 x10^3/uL (1.0-4.8) Monocytes # (Auto) 1.0 x10^3/uL (0.0-1.1) Eosinophils # (Auto) 0.1 x10^3/uL (0.0-0.7) Basophils # (Auto) 0.0 x10^3/uL (0.0-0.2) Sodium Level 141 mmol/L (136-145) Potassium Level 3.8 mmol/L (3.5-5.1) Chloride Level 104 mmol/L (98-107) Carbon Dioxide Level 27 mmol/L (21-32) Anion Gap 10 (6-14) Blood Urea Nitrogen 10 mg/dL (7-20) Creatinine 0.8 mg/dL (0.6-1.0) Estimated GFR (Cockcroft-Gault) 86.0 BUN/Creatinine Ratio 13 (6-20) Glucose Level 84 mg/dL (70-99) Calcium Level 8.5 mg/dL (8.5-10.1) Total Bilirubin 0.1 mg/dL (0.2-1.0) L Aspartate Amino Transferase (AST) 15 U/L (15-37) Alanine Aminotransferase (ALT) 27 U/L (14-59) Alkaline Phosphatase 70 U/L (46-116) Total Protein 8.0 g/dL (6.4-8.2) Albumin 3.5 g/dL (3.4-5.0) Albumin/Globulin Ratio 0.8 (1.0-1.7) L Laboratory Tests 01/05/17 21:40 Laboratory Tests 01/05/17 21:40 EKG EKG [] Radiology/Procedures Radiology/Procedures [] Course & Med Decision Making Course & Med Decision Making Pertinent Labs and Imaging studies reviewed. (See chart for details) [] Dragon Disclaimer Dragon Disclaimer This electronic medical record was generated, in whole or in part, using a voice recognition dictation system. Departure Departure Impression: Primary Impression: Abdominal pain Additional Impressions: Ovarian cyst Constipation Disposition: HOME, SELF-CARE Condition: IMPROVED Referrals: UNKNOWN PCP NAME (PCP) Patient Instructions: Abdominal Pain (Nonspecific), Constipation, Adult Additional Instructions: Please call your doctor in the morning for further evaluation and instruction regarding treatment and management of your abdominal pain. Your pain might be related to your constipation. Please increase her fiber intake. Problem Qualifiers ZENY MENDEZ MD Jan 06, 2017 00:19
[2017-01-06 00:38] VITALS: BP 93/54
[2017-01-06] MEDS ORDERED: BISACODYL 5 MG TABLET.DR. PO PRN (00:45)
[2017-01-06] MEDS ORDERED: BISACODYL 5 MG TABLET.DR. PO ONE (01:00)
== END 2017-01-06 00:35 | disposition home or self-care (01) ==
LOC: ER 21:03
DX: N83.209 Unspecified ovarian cyst, unspecified side (principal); K59.00 Constipation, unspecified; Z91.048 Other nonmedicinal substance allergy status
CPT/HCPCS: 36415; 74176; 80053; 81001; 81025; 85027; 87086; 96361; 96374; 99285; J1885; J7030

== ENCOUNTER 2017-02-12 23:00 | Emergency (ER) | payer OTHER ==
[~2017-02-12] VITALS: Ht 160 cm; Wt 97.5 kg
[2017-02-13] MEDS ORDERED: MORPHINE SULFATE 2 MG/ML DISP.SYRIN. IV/SQ PRN (00:15)
[2017-02-13 00:24] LABS: BASO # 0.1 x10^3/uL (0.0-0.2); BASO % 1 % (0-3); EOS % 2 % (0-3); HEMATOCRIT 39.6 % (36.0-47.0); HEMOGLOBIN 12.8 g/dL (12.0-15.5); LYMPH # 2.7 x10^3/uL (1.0-4.8); LYMPH % 31 % (24-48); MEAN CORPUSCULAR HEMOGLOBIN 28 pg (25-35); MEAN CORPUSCULAR HGB CONC 32 g/dL (31-37); MEAN CORPUSCULAR VOLUME 86 fL (79-100); MONO % 10 % (0-9); NEUT % 56 % (31-73); PLATELET COUNT 271 x10^3/uL (140-400); RED BLOOD COUNT 4.62 x10^6/uL (3.50-5.40); RED CELL DISTRIBUTION WIDTH 14.7 % (11.5-14.5); WHITE BLOOD COUNT 8.7 x10^3/uL (4.0-11.0)
[2017-02-13 00:26] LABS: BILIRUBIN,URINE NEGATIVE (NEG); GLUCOSE,URINE NEGATIVE (NEG); NITRITE,URINE NEGATIVE (NEG); PROTEIN,URINE NEGATIVE (NEG-TRACE); UROBILINOGEN,URINE 0.2 mg/dL (0.2 mg/dL)
[2017-02-13] MEDS ORDERED: IV NORMAL SALINE 1000ML BAG 1,000 ML IV SCH (00:30)
[2017-02-13] MEDS ORDERED: ONDANSETRON PF 4 MG/2 ML VIAL. IV ONE (00:30)
[2017-02-13 00:31] LABS: ANION GAP 8 (6-14); BLOOD UREA NITROGEN 13 mg/dL (7-20); CALCIUM 9.2 mg/dL (8.5-10.1); CARBON DIOXIDE 27 mmol/L (21-32); CHLORIDE 105 mmol/L (98-107); CREATININE 0.8 mg/dL (0.6-1.0); GLUCOSE 110 mg/dL (70-99); POTASSIUM 3.8 mmol/L (3.5-5.1); SODIUM 140 mmol/L (136-145)
[2017-02-13 00:32] LABS: BACTERIA,URINE 0 /HPF (0-FEW); RBC,URINE 20-40 /HPF (0-2); SQUAMOUS EPITHELIAL CELL,UR FEW /LPF
[2017-02-13 00:37] LABS: ALBUMIN 3.5 g/dL (3.4-5.0); ALK PHOS 59 U/L (46-116); ALT (SGPT) 26 U/L (14-59); AST (SGOT) 15 U/L (15-37); DIRECT BILIRUBIN < 0.1 mg/dL (0.0-0.2); TOTAL BILIRUBIN 0.1 mg/dL (0.2-1.0)
--- NOTE | 2017-02-13 01:11 | PHYS DOC ---
Past Medical History Additional Past Medical Histor: Ovarian cyst Past Surgical History: Additional Past Surgical Histo: [place] teeth removed. Additional Information: non smoker Alcohol Use: None Drug Use: None Adult General Chief Complaint Chief Complaint: ABDOMINAL PAIN HPI HPI Patient is a 26 year old female who presents with left lower quadrant pelvic pain. She states she has a known ovarian cyst on that left side. She states "I feel like it's burst". No recent travel. Has nausea with this but no vomiting. All started at 1800 p.m. on Monday evening. No recent fever sore throat or cough. No urinary complaints. She is not on control pills or hormones. Review of Systems Review of Systems Constitutional: Denies fever or chills Eyes: Denies change in visual acuity, redness, or eye pain HENT: Denies nasal congestion or sore throat Respiratory: Denies cough or shortness of breath Cardiovascular: No chest pain GI: POS abdominal pain, POS nausea, No vomiting, bloody stools or diarrhea : Denies dysuria or hematuria; left pelvic pain. Musculoskeletal: Denies back pain or joint pain Integument: Denies rash or skin lesions Neurologic: Denies headache, focal weakness or sensory changes Current Medications Current Medications Current Medications Medications (Trade) Dose Ordered Sig/Shruthi Start Time Stop Time Status Last Admin Dose Admin Morphine Sulfate 2 mg PRN Q15MIN PRN 02/13/17 00:15 02/13/17 02:34 DC 02/13/17 00:24 2 MG Ondansetron HCl (Zofran) 4 mg 1X ONCE 02/13/17 00:30 02/13/17 00:31 DC 02/13/17 00:24 4 MG Sodium Chloride 1,000 ml @ 1,000 mls/hr Q1H 02/13/17 00:30 02/13/17 01:29 DC 02/13/17 00:23 1,000 MLS/HR Allergies Allergies Allergies Coded Allergies Type Severity Reaction Last Updated Verified adhesive Allergy Intermediate REDNESS, RASH 12/17/15 Yes Physical Exam Physical Exam Constitutional: Well developed, well nourished, no acute distress, non-toxic appearance. HENT: Normocephalic, atraumatic, bilateral external ears normal, oropharynx moist, no oral exudates, nose normal. Eyes: PERRLA, EOMI, conjunctiva normal, no discharge. Neck: Normal range of motion, no tenderness, supple, no stridor. Cardiovascular:Heart rate regular rhythm, no murmur Lungs & Thorax: Bilateral breath sounds clear to auscultation Abdomen: Bowel sounds normal, soft, tenderness left lower quadrant; no rebound or guarding, no masses, no pulsatile masses. Skin: Warm, dry, no erythema, no rash. Back: No tenderness, no CVA tenderness. Extremities: No tenderness, no cyanosis, no clubbing, ROM intact, no edema. Neurologic: Alert and oriented X 3, normal motor function, normal sensory function, no focal deficits noted. Current Patient Data Vital Signs Vital Signs Date Time Temp Pulse Resp B/P (MAP) Pulse Ox O2 Delivery O2 Flow Rate FiO2 02/13/17 02:11 82 17 140/77 (98) 97 02/13/17 01:41 Room Air 02/13/17 00:05 97.9 97.9 Lab Values Laboratory Tests Test 02/12/17 23:50 02/13/17 00:01 POC Urine HCG, Qualitative Hcg negative (Negative) White Blood Count 8.7 x10^3/uL (4.0-11.0) Red Blood Count 4.62 x10^6/uL (3.50-5.40) Hemoglobin 12.8 g/dL (12.0-15.5) Hematocrit 39.6 % (36.0-47.0) Mean Corpuscular Volume 86 fL (79-100) Mean Corpuscular Hemoglobin 28 pg (25-35) Mean Corpuscular Hemoglobin Concent 32 g/dL (31-37) Red Cell Distribution Width 14.7 % (11.5-14.5) H Platelet Count 271 x10^3/uL (140-400) Neutrophils (%) (Auto) 56 % (31-73) Lymphocytes (%) (Auto) 31 % (24-48) Monocytes (%) (Auto) 10 % (0-9) H Eosinophils (%) (Auto) 2 % (0-3) Basophils (%) (Auto) 1 % (0-3) Neutrophils # (Auto) 4.9 x10^3uL (1.8-7.7) Lymphocytes # (Auto) 2.7 x10^3/uL (1.0-4.8) Monocytes # (Auto) 0.9 x10^3/uL (0.0-1.1) Eosinophils # (Auto) 0.2 x10^3/uL (0.0-0.7) Basophils # (Auto) 0.1 x10^3/uL (0.0-0.2) Urine Collection Type Unknown Urine Color Yellow Urine Clarity Cloudy Urine pH 7.0 Urine Specific [place] 1.020 Urine Protein Negative mg/dL (NEG-TRACE) Urine Glucose (UA) Negative mg/dL (NEG) Urine Ketones (Stick) Negative mg/dL (NEG) Urine Blood Large (NEG) Urine Nitrite Negative (NEG) Urine Bilirubin Negative (NEG) Urine Urobilinogen Dipstick 0.2 mg/dL (0.2 mg/dL) Urine Leukocyte Esterase Negative (NEG) Urine RBC 20-40 /HPF (0-2) Urine WBC 1-4 /HPF (0-4) Urine Squamous Epithelial Cells Few /LPF Urine Amorphous Sediment Present /HPF Urine Bacteria 0 /HPF (0-FEW) Urine Mucus Mod /LPF Sodium Level 140 mmol/L (136-145) Potassium Level 3.8 mmol/L (3.5-5.1) Chloride Level 105 mmol/L (98-107) Carbon Dioxide Level 27 mmol/L (21-32) Anion Gap 8 (6-14) Blood Urea Nitrogen 13 mg/dL (7-20) Creatinine 0.8 mg/dL (0.6-1.0) Estimated GFR (Cockcroft-Gault) 86.0 Glucose Level 110 mg/dL (70-99) H Calcium Level 9.2 mg/dL (8.5-10.1) Total Bilirubin 0.1 mg/dL (0.2-1.0) L Direct Bilirubin < 0.1 mg/dL (0.0-0.2) Aspartate Amino Transferase (AST) 15 U/L (15-37) Alanine Aminotransferase (ALT) 26 U/L (14-59) Alkaline Phosphatase 59 U/L (46-116) Total Protein 8.0 g/dL (6.4-8.2) Albumin 3.5 g/dL (3.4-5.0) Lipase 181 U/L (73-393) Laboratory Tests 02/13/17 00:01 Laboratory Tests 02/13/17 00:01 Radiology/Procedures Radiology/Procedures [facility] [address] [place] [address] IMAGING REPORT Signed PATIENT: ALICIA SUTTON ACCOUNT: [id number] : 1990 LOCATION: ER AGE: 26 SEX: F EXAM STATUS: DEP ER ORD. PHYSICIAN: FABRIZIO DIAZ MD REASON: left lower quad pain w prior cyst PROCEDURE: PELVIS W/TV Ultrasound pelvis with transvaginal 02/13/2017 Clinical indication: Left pelvic pain. COMPARISON: Ultrasound pelvis 08/10/2016, CT abdomen and pelvis 08/10/2016, CT abdomen and pelvis January 05, 2017. FINDINGS: Transabdominal and transvaginal images were performed. Uterus measures 7.0 x 3.1 x 4.2 cm. No discrete myometrial mass lesion identified. Endometrium is normal in appearance and thickness measuring 6 mm. Left ovary measures 4.2 x 3.4 x 3.4 cm. There is a left ovarian cyst with thin internal septation measuring 3.2 x 3.0 x 3.3 cm. Spectral analysis of the septation demonstrates mild internal blood flow. Normal color Doppler imaging of the left ovary. The right ovary is not visualized. No significant pelvic free fluid. IMPRESSION: 1. Left ovarian cyst with thin internal septation and suggestion of internal flow within the septation. Finding is concerning for primary ovarian epithelial neoplasm such as serous cystadenoma, though cystadenocarcinoma cannot be excluded. Surgical gynecology consult is recommended. 2. Right ovary is not visualized. 3. No significant pelvic free fluid. Electronically signed by: Simona Gutierrez MD (02/13/2017 2:34 AM) [facility] DICTATED and SIGNED BY: SIMONA GUTIERREZ MD DATE: 02/13/17223 CC: FABRIZIO DIAZ MD; UNKNOWN PCP NAME ~ Course & Med Decision Making Course & Med Decision Making Evaluated patient upon arrival. IV NS, NPO, IV morphine and zofran. test negative. Lab reviewed. US ordered and done-results pending. At 0210 AM received verbal US report of NO torsion; left ovarian cyst unchanged from prior. No free fluid. 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 She did have a recent CT abd done . Rx: tramadol and zofran I discussed with her that she needs to contact her DOUBLE BACK OPERATOR in the am. She has been battling this for a while and she needs them to determine if surgery is indicated. I have spoken with the patient and/or caregivers. I have explained the patient' s condition, diagnosis and treatment plan based on the information available to me at this time. I have answered the patient's and/or caregiver's questions and addressed any concerns. The patient and/or caregivers have as good an understanding of the patient's diagnosis, condition and treatment plan as can be expected at this point. The patient's condition is stable and appropriate for discharge from the emergency department. The patient will pursue further outpatient evaluation with the primary care physician or other designated or consulting physician as outlined in the discharge instructions. The patient and/or caregivers are agreeable to this plan of care and follow-up instructions have been explained in detail. The patient and/or caregivers have received these instructions in written format and have expressed an understanding of the discharge instructions. The patient and/or caregivers are aware that any significant change in condition or worsening of symptoms should prompt an immediate return to this or the closest emergency department or a call to 911. Dragon Disclaimer Dragon Disclaimer This electronic medical record was generated, in whole or in part, using a voice recognition dictation system. Departure Departure Impression: Primary Impression: Abdominal pain Disposition: 01 HOME, SELF-CARE Condition: STABLE Referrals: UNKNOWN PCP NAME (PCP) Patient Instructions: Ovarian Cyst Scripts Tramadol Hcl/Acetaminophen (TRAMADOL-ACETAMINOPHN 37.5-325) 1 Each Tablet 1 TAB PO TID, #30 TAB Prov: FABRIZIO DIAZ MD 02/13/17 Ondansetron (ZOFRAN ODT) 4 Mg Tab.rapdis 1 TAB SL Q8HRS, #15 TAB Prov: FABRIZIO DIAZ MD 02/13/17 Naproxen (NAPROSYN) 500 Mg Tablet 1 TAB PO BID, #30 TAB Prov: FABRIZIO DIAZ MD 02/13/17 Problem Qualifiers Primary Impression: Abdominal pain Abdominal location: left lower quadrant Qualified Codes: R10.32 - Left lower quadrant pain FABRIZIO DIAZ MD Feb 13, 2017 01:11
[2017-02-13 02:11] VITALS: BP 140/77
[2017-02-13] MEDS ORDERED: NAPR500T PO (02:18)
[2017-02-13] MEDS ORDERED: ONDA4TAB10 SL (02:18)
[2017-02-13] MEDS ORDERED: TRAM1TAB4 PO (02:18)
--- NOTE | 2017-02-13 02:38 | RAD ---
Ultrasound pelvis with transvaginal 02/13/2017 Clinical indication: Left pelvic pain. COMPARISON: Ultrasound pelvis 08/10/2016, CT abdomen and pelvis 08/10/2016, CT abdomen and pelvis January 05, 2017. FINDINGS: Transabdominal and transvaginal images were performed. Uterus measures 7.0 x 3.1 x 4.2 cm. No discrete myometrial mass lesion identified. Endometrium is normal in appearance and thickness measuring 6 mm. Left ovary measures 4.2 x 3.4 x 3.4 cm. There is a left ovarian cyst with thin internal septation measuring 3.2 x 3.0 x 3.3 cm. Spectral analysis of the septation demonstrates mild internal blood flow. Normal color Doppler imaging of the left ovary. The right ovary is not visualized. No significant pelvic free fluid. IMPRESSION: 1. Left ovarian cyst with thin internal septation and suggestion of internal flow within the septation. Finding is concerning for primary ovarian epithelial neoplasm such as serous cystadenoma, though cystadenocarcinoma cannot be excluded. Surgical gynecology consult is recommended. 2. Right ovary is not visualized. 3. No significant pelvic free fluid. Electronically signed by: Kofi Carpenter MD (02/13/2017 2:34 AM) [facility]
== END 2017-02-13 02:34 | disposition home or self-care (01) ==
LOC: ER 23:00
DX: R10.32 Left lower quadrant pain (principal); R10.2 Pelvic and perineal pain; R11.0 Nausea; Z91.048 Other nonmedicinal substance allergy status
CPT/HCPCS: 36415; 76830; 76856; 80048; 80076; 81001; 81025; 83690; 85025; 96361; 96374; 96375; 99285; J2270; J2405; J7030

== ENCOUNTER 2017-04-04 19:58 | Emergency (ER) | payer OTHER ==
[~2017-04-04] VITALS: Ht 162.6 cm; Wt 96.2 kg
[~2017-04-04 19:58] MED LIST changes: +NAPR500T PO; +TRAM1TAB4 PO
[2017-04-04] MEDS ORDERED: IV NORMAL SALINE 1000ML BAG 1,000 ML IV ONE (21:15)
[2017-04-04] MEDS ORDERED: LIDOCAINE 1% PF 2 ML VIAL. NEB ONE (21:15)
[2017-04-04] MEDS ORDERED: diphenhydrAMINE 50 MG/ML VIAL IM ONE (21:15)
[2017-04-04] MEDS ORDERED: KETOROLAC 15 MG/ML VIAL. IV ONE (21:15)
[2017-04-04] MEDS ORDERED: METOCLOPRAMIDE HCL 10 MG/2 ML VIAL. IV ONE (21:15)
[2017-04-04 21:30] LABS: BILIRUBIN,URINE NEGATIVE (NEG); GLUCOSE,URINE NEGATIVE (NEG); NITRITE,URINE NEGATIVE (NEG); PH,URINE 7.5; PROTEIN,URINE NEGATIVE (NEG-TRACE)
[2017-04-04 21:35] LABS: BARBITURATES NEG (NEG); BENZODIAZEPINES NEG (NEG); CANNABINOIDS NEG (NEG); COCAINE NEG (NEG); METHADONE NEG (NEG); OPIATES NEG (NEG); PHENCYCLIDINE NEG (NEG)
[2017-04-04 21:38] LABS: BASO # 0.1 x10^3/uL (0.0-0.2); BASO % 1 % (0-3); EOS % 2 % (0-3); HEMATOCRIT 39.2 % (36.0-47.0); HEMOGLOBIN 12.7 g/dL (12.0-15.5); LYMPH # 3.4 x10^3/uL (1.0-4.8); LYMPH % 33 % (24-48); MEAN CORPUSCULAR HEMOGLOBIN 28 pg (25-35); MEAN CORPUSCULAR HGB CONC 33 g/dL (31-37); MEAN CORPUSCULAR VOLUME 86 fL (79-100); MONO % 9 % (0-9); NEUT % 55 % (31-73); PLATELET COUNT 325 x10^3/uL (140-400); RED BLOOD COUNT 4.54 x10^6/uL (3.50-5.40); RED CELL DISTRIBUTION WIDTH 14.5 % (11.5-14.5); WHITE BLOOD COUNT 10.1 x10^3/uL (4.0-11.0)
[2017-04-04 21:40] LABS: BACTERIA,URINE FEW /HPF (0-FEW); RBC,URINE OCC /HPF (0-2); SQUAMOUS EPITHELIAL CELL,UR MANY /LPF; WBC,URINE OCC /HPF (0-4)
[2017-04-04 21:46] LABS: CALCIUM 9.1 mg/dL (8.5-10.1); CREATININE 0.8 mg/dL (0.6-1.0); POTASSIUM 3.7 mmol/L (3.5-5.1)
[2017-04-04 21:53] LABS: ALBUMIN 3.6 g/dL (3.4-5.0); ALBUMIN/GLOBULIN RATIO 0.7 (1.0-1.7); TOTAL BILIRUBIN 0.2 mg/dL (0.2-1.0); TOTAL PROTEIN 8.6 g/dL (6.4-8.2)
[2017-04-04] MEDS ORDERED: BUTA1CAP31 PO (23:03)
[2017-04-04 23:11] VITALS: BP 115/57
--- NOTE | 2017-04-04 23:43 | ED.ADGEN ---
Past Medical History Past Medical History: No Pertinent History Additional Past Medical Histor: Ovarian cyst Past Surgical History: Additional Past Surgical Histo: [place] teeth removed. Alcohol Use: Occasionally Drug Use: None Adult General Chief Complaint Chief Complaint: HEADACHE HPI HPI Patient is a 26 year old woman, who presents to the emergency department with a complaint of headache, located in the frontal region, and of recurrent left- sided abdominal pain. Patient has been evaluated for left-sided abdominal pain previously both in the emergency department in the outpatient setting. She states currently she is awaiting evaluation by [facility] for a possible cyst. She denies any nausea or vomiting, any weakness numbness or tingling, states that the headache is located in the front of her head, and she's had headaches like this previously, but usually they respond to Tylenol, which she took around noon today without relief. No fevers or chills, no vision changes, no injuries, no neck pain, no dizziness or lightheadedness, no chest pain or shortness of breath. Patient is not taking any other medications, denies any injuries, any ingestions or exposures. No complaints. Review of Systems Review of Systems Constitutional: Denies fever or chills. [] Eyes: Denies change in visual acuity. [] HENT: Denies nasal congestion or sore throat. [] Respiratory: Denies cough or shortness of breath. [] Cardiovascular: Denies chest pain or edema. [] GI: Denies nausea, vomiting, bloody stools or diarrhea. [] Left-sided abdominal pain. : Denies dysuria. [] Musculoskeletal: Denies back pain or joint pain. [] Integument: Denies rash. [] Neurologic: Denies focal weakness or sensory changes. [Headache.] Endocrine: Denies polyuria or polydipsia. [] Lymphatic: Denies swollen glands. [] Psychiatric: Denies depression or anxiety. [] Current Medications Current Medications Current Medications Medications (Trade) Dose Ordered Sig/Shruthi Start Time Stop Time Status Last Admin Dose Admin Diphenhydramine HCl (Benadryl) 25 mg 1X ONCE 04/04/17 21:15 04/04/17 21:16 DC 04/04/17 21:15 25 MG Ketorolac Tromethamine (Toradol) 10 mg 1X ONCE 04/04/17 21:15 04/04/17 21:16 DC 04/04/17 21:51 10 MG Lidocaine HCl (Xylocaine-Mpf 1% Vial) 5 ml 1X ONCE 04/04/17 21:15 04/04/17 21:16 DC 04/04/17 22:02 5 ML Metoclopramide HCl (Reglan) 10 mg 1X ONCE 04/04/17 21:15 04/04/17 21:16 DC 04/04/17 21:42 10 MG Sodium Chloride 1,000 ml @ 1,000 mls/hr 1X ONCE 04/04/17 21:15 04/04/17 22:14 DC 04/04/17 21:40 1,000 MLS/HR Allergies Allergies Allergies Coded Allergies Type Severity Reaction Last Updated Verified adhesive Allergy Intermediate REDNESS, RASH 12/17/15 Yes Physical Exam Physical Exam Constitutional: Well developed, well nourished, no acute distress, non-toxic appearance. [] HENT: Normocephalic, atraumatic, bilateral external ears normal, oropharynx moist, no oral exudates, nose normal. [] Eyes: PERRLA, EOMI, conjunctiva normal, no discharge. [] Neck: Normal range of motion, no tenderness, supple, no stridor. [] Cardiovascular:Heart rate regular rhythm, no murmur [] Lungs & Thorax: Bilateral breath sounds clear to auscultation, no wheezing, no rhonchi, rales. No chest wall crepitus or tenderness. [] Abdomen: Bowel sounds normal, soft, patient with mild initial patient in along the left upper and left lower abdomen, no rebound, no rigidity, no guarding, no masses, no pulsatile masses. [] Skin: Warm, dry, no erythema, no rash. [] Back: No tenderness, no CVA tenderness. [] Extremities: No tenderness, no cyanosis, no clubbing, ROM intact, no edema. [] Neurologic: Alert and oriented X 3, normal motor function, normal sensory function, no focal deficits noted. [] Psychologic: Affect normal, judgement normal, mood normal. [] Current Patient Data Vital Signs Vital Signs Date Time Temp Pulse Resp B/P (MAP) Pulse Ox O2 Delivery O2 Flow Rate FiO2 04/04/17 23:11 88 15 98 04/04/17 22:05 Room Air 11/7/17 20:15 99.3 120/74 (89) 99.3 Lab Values Laboratory Tests Test 04/04/17 21:12 04/04/17 21:19 04/04/17 21:28 Urine Collection Type Unknown Urine Color Yellow Urine Clarity Cloudy Urine pH 7.5 Urine Specific [place] 1.020 Urine Protein Negative mg/dL (NEG-TRACE) Urine Glucose (UA) Negative mg/dL (NEG) Urine Ketones (Stick) Negative mg/dL (NEG) Urine Blood Negative (NEG) Urine Nitrite Negative (NEG) Urine Bilirubin Negative (NEG) Urine Urobilinogen Dipstick 1.0 mg/dL (0.2 mg/dL) Urine Leukocyte Esterase Negative (NEG) Urine RBC Occ /HPF (0-2) Urine WBC Occ /HPF (0-4) Urine Squamous Epithelial Cells Many /LPF Urine Amorphous Sediment Present /HPF Urine Bacteria Few /HPF (0-FEW) Urine Mucus Mod /LPF Urine Opiates Screen Neg (NEG) Urine Methadone Screen Neg (NEG) Urine Barbiturates Neg (NEG) Urine Phencyclidine Screen Neg (NEG) Urine Amphetamine/Methamphetamine Neg (NEG) Urine Benzodiazepines Screen Neg (NEG) Urine Cocaine Screen Neg (NEG) Urine Cannabinoids Screen Neg (NEG) Urine Ethyl Alcohol Neg (NEG) POC Urine HCG, Qualitative Hcg negative (Negative) White Blood Count 10.1 x10^3/uL (4.0-11.0) Red Blood Count 4.54 x10^6/uL (3.50-5.40) Hemoglobin 12.7 g/dL (12.0-15.5) Hematocrit 39.2 % (36.0-47.0) Mean Corpuscular Volume 86 fL (79-100) Mean Corpuscular Hemoglobin 28 pg (25-35) Mean Corpuscular Hemoglobin Concent 33 g/dL (31-37) Red Cell Distribution Width 14.5 % (11.5-14.5) Platelet Count 325 x10^3/uL (140-400) Neutrophils (%) (Auto) 55 % (31-73) Lymphocytes (%) (Auto) 33 % (24-48) Monocytes (%) (Auto) 9 % (0-9) Eosinophils (%) (Auto) 2 % (0-3) Basophils (%) (Auto) 1 % (0-3) Neutrophils # (Auto) 5.6 x10^3uL (1.8-7.7) Lymphocytes # (Auto) 3.4 x10^3/uL (1.0-4.8) Monocytes # (Auto) 0.9 x10^3/uL (0.0-1.1) Eosinophils # (Auto) 0.2 x10^3/uL (0.0-0.7) Basophils # (Auto) 0.1 x10^3/uL (0.0-0.2) Sodium Level 142 mmol/L (136-145) Potassium Level 3.7 mmol/L (3.5-5.1) Chloride Level 104 mmol/L (98-107) Carbon Dioxide Level 27 mmol/L (21-32) Anion Gap 11 (6-14) Blood Urea Nitrogen 12 mg/dL (7-20) Creatinine 0.8 mg/dL (0.6-1.0) Estimated GFR (Cockcroft-Gault) 86.0 BUN/Creatinine Ratio 15 (6-20) Glucose Level 93 mg/dL (70-99) Calcium Level 9.1 mg/dL (8.5-10.1) Total Bilirubin 0.2 mg/dL (0.2-1.0) Aspartate Amino Transferase (AST) 17 U/L (15-37) Alanine Aminotransferase (ALT) 23 U/L (14-59) Alkaline Phosphatase 75 U/L (46-116) Total Protein 8.6 g/dL (6.4-8.2) H Albumin 3.6 g/dL (3.4-5.0) Albumin/Globulin Ratio 0.7 (1.0-1.7) L Lipase 161 U/L (73-393) Laboratory Tests 04/04/17 21:28 Laboratory Tests 04/04/17 21:28 EKG EKG Not indicated.[] Radiology/Procedures Radiology/Procedures Not indicated.[] Course & Med Decision Making Course & Med Decision Making Pertinent Labs and Imaging studies reviewed. (See chart for details) Patient states that she is primarily here today for her headache, she is having the chronic intermittent left lower abdominal pain, with minimal tenderness on examination. She states she has had headaches like this before, is not experiencing any vertiginous symptoms, any fevers, any concerning history exposures. At this time we'll proceed with treatment, patient initiated on a lidocaine neb, along with Reglan, Benadryl, and Toradol. HCG was negative, patient's laboratory studies were unremarkable. On reevaluation, patient states that both her abdominal pain and her headache are significantly improved. She states that she is no longer feeling nauseous, and has tolerated by mouth fluids , is rated to be discharged home. I did discuss the patient importance of following up with [facility] as was recommended by the GI physician, we also discussed concerning symptoms that prompt return for both her abdominal symptoms , and her headache. Patient was given a prescription for Purinol, to be used as directed, along with precautions, patient voiced understanding and instructions with plan, precautions and prescriptions, discharged home in stable condition with plan as above. Dragon Disclaimer Dragon Disclaimer This electronic medical record was generated, in whole or in part, using a voice recognition dictation system. Departure Impression: Primary Impression: Headache Additional Impression: Chronic abdominal pain Disposition: HOME, SELF-CARE Condition: IMPROVED Scripts Butalbital/Aspirin/Caffeine (FIORINAL 50-325-40 MG CAPSULE) 1 Each Capsule 1 EACH PO PRN Q4-6HRS Y for HEADACHE, #12 CAP Prov: SHAKIR LYN DO 04/04/17 Problem Qualifiers SHAKIR LYN DO Apr 04, 2017 23:43
== END 2017-04-04 23:25 | disposition home or self-care (01) ==
LOC: ER 19:58
DX: R51 Headache (principal); G89.29 Other chronic pain; R10.32 Left lower quadrant pain; R10.12 Left upper quadrant pain; Z88.8 Allergy status to other drugs, medicaments and biological substances
CPT/HCPCS: 36415; 80053; 80307; 81001; 81025; 83690; 85025; 96361; 96372; 96374; 96375; 99284; J1200; J1885; J2765; J7030; G0479

== ENCOUNTER 2017-04-21 08:52 | Emergency (ER) | payer OTHER ==
[~2017-04-21] VITALS: Ht 160 cm; Wt 96.2 kg
[2017-04-21 09:01] VITALS: BP 122/69
[2017-04-21] MEDS ORDERED: IV NORMAL SALINE 1000ML BAG 1,000 ML IV ONE (09:15)
[2017-04-21] MEDS ORDERED: KETOROLAC 30 MG/ML INJ. IV ONE (09:15)
[2017-04-21] MEDS ORDERED: ONDANSETRON PF 4 MG/2 ML VIAL. IV ONE (09:15)
--- NOTE | 2017-04-21 09:18 | PHYS DOC ---
Past Medical History Past Medical History: No Pertinent History Additional Past Medical Histor: Ovarian cyst Past Surgical History: Additional Past Surgical Histo: [place] teeth removed. Alcohol Use: Occasionally Drug Use: None Adult General Chief Complaint Chief Complaint: PAIN CONTROL HPI HPI Patient is a 26 year old female presents to the emergency department with a history of left-sided abdominal pain and flank pain. Patient states that the pain started at midnight tonight. She states that she had tried Tylenol with no relief. She states that she's been nauseated however did not vomited. She denies any urinary frequency urgency or pain with urination. She states that she had a normal bowel movement today. She states that she has been on Percocet in the past her primary care physician took her off of Percocet due to the fact they were trying to find out why she was having severe abdominal pain and discomfort. Patient denies urinary frequency urgency of or pain with urination. Patient denies any diverticulitis, diverticulosis or Crohns. Patient denies vaginal discharge. Review of Systems Review of Systems Constitutional: Denies fever or chills [] Eyes: Denies change in visual acuity, redness, or eye pain [] HENT: Denies nasal congestion or sore throat [] Respiratory: Denies cough or shortness of breath [] Cardiovascular: No additional information not addressed in HPI [] GI: abdominal pain, nausea, denies vomiting, bloody stools or diarrhea [] : Denies dysuria or hematuria [] Musculoskeletal: left flank back pain denies joint pain [] Integument: Denies rash or skin lesions [] Neurologic: Denies headache, focal weakness or sensory changes [] Endocrine: Denies polyuria or polydipsia [] All other systems were reviewed and found to be within normal limits, except as documented in this note. Current Medications Current Medications Current Medications Medications (Trade) Dose Ordered Sig/Shruthi Start Time Stop Time Status Last Admin Dose Admin Ketorolac Tromethamine (Toradol) 30 mg 1X ONCE 04/21/17 09:15 04/21/17 09:16 DC 04/21/17 09:17 30 MG Ondansetron HCl (Zofran) 4 mg 1X ONCE 04/21/17 09:15 04/21/17 09:16 DC 04/21/17 09:18 4 MG Sodium Chloride 1,000 ml @ 1,000 mls/hr 1X ONCE 04/21/17 09:15 04/21/17 10:14 DC 04/21/17 09:17 1,000 MLS/HR Allergies Allergies Allergies Coded Allergies Type Severity Reaction Last Updated Verified adhesive Allergy Intermediate REDNESS, RASH 12/17/15 Yes Physical Exam Physical Exam Constitutional: Well developed, well nourished, no acute distress, non-toxic appearance. [] HENT: Normocephalic, atraumatic, bilateral external ears normal, oropharynx moist, no oral exudates, nose normal. [] Eyes: PERRLA, EOMI, conjunctiva normal, no discharge. [] Neck: Normal range of motion, no tenderness, supple, no stridor. [] Cardiovascular:Heart rate regular rhythm, no murmur [] Lungs & Thorax: Bilateral breath sounds clear to auscultation [] Abdomen: Bowel sounds hypoactive, soft, left upper and lower quadrant tenderness , no masses, no pulsatile masses. Patient with no rebound tenderness noted. Skin: Warm, dry, no erythema, no rash. [] Back: No tenderness, left CVA tenderness. [] Extremities: No tenderness, no cyanosis, no clubbing, ROM intact, no edema. [] Neurologic: Alert and oriented X 3, normal motor function, normal sensory function, no focal deficits noted. [] Psychologic: Affect normal, judgement normal, mood normal. [] Current Patient Data Vital Signs Vital Signs Date Time Temp Pulse Resp B/P (MAP) Pulse Ox O2 Delivery O2 Flow Rate FiO2 04/21/17 09:01 98.3 80 18 97 Room Air 98.3 Lab Values Laboratory Tests Test 04/21/17 09:00 04/21/17 09:09 04/21/17 10:30 Urine Collection Type Void Urine Color Yellow Urine Clarity Clear Urine pH 5.5 Urine Specific [place] 1.015 Urine Protein Negative mg/dL (NEG-TRACE) Urine Glucose (UA) Negative mg/dL (NEG) Urine Ketones (Stick) Negative mg/dL (NEG) Urine Blood Large (NEG) Urine Nitrite Negative (NEG) Urine Bilirubin Negative (NEG) Urine Urobilinogen Dipstick 0.2 mg/dL (0.2 mg/dL) Urine Leukocyte Esterase Negative (NEG) Urine RBC Occ /HPF (0-2) Urine WBC Rare /HPF (0-4) Urine Squamous Epithelial Cells Few /LPF Urine Bacteria 0 /HPF (0-FEW) Urine Opiates Screen Neg (NEG) Urine Methadone Screen Neg (NEG) Urine Barbiturates Neg (NEG) Urine Phencyclidine Screen Neg (NEG) Urine Amphetamine/Methamphetamine Neg (NEG) Urine Benzodiazepines Screen Neg (NEG) Urine Cocaine Screen Neg (NEG) Urine Cannabinoids Screen Neg (NEG) Urine Ethyl Alcohol Neg (NEG) POC Urine HCG, Qualitative Hcg negative (Negative) White Blood Count 6.8 x10^3/uL (4.0-11.0) Red Blood Count 4.11 x10^6/uL (3.50-5.40) Hemoglobin 11.8 g/dL (12.0-15.5) L Hematocrit 35.6 % (36.0-47.0) L Mean Corpuscular Volume 87 fL (79-100) Mean Corpuscular Hemoglobin 29 pg (25-35) Mean Corpuscular Hemoglobin Concent 33 g/dL (31-37) Red Cell Distribution Width 14.4 % (11.5-14.5) Platelet Count 259 x10^3/uL (140-400) Neutrophils (%) (Auto) 66 % (31-73) Lymphocytes (%) (Auto) 24 % (24-48) Monocytes (%) (Auto) 8 % (0-9) Eosinophils (%) (Auto) 2 % (0-3) Basophils (%) (Auto) 0 % (0-3) Neutrophils # (Auto) 4.5 x10^3uL (1.8-7.7) Lymphocytes # (Auto) 1.6 x10^3/uL (1.0-4.8) Monocytes # (Auto) 0.5 x10^3/uL (0.0-1.1) Eosinophils # (Auto) 0.1 x10^3/uL (0.0-0.7) Basophils # (Auto) 0.0 x10^3/uL (0.0-0.2) Sodium Level 140 mmol/L (136-145) Potassium Level 4.0 mmol/L (3.5-5.1) Chloride Level 108 mmol/L (98-107) H Carbon Dioxide Level 25 mmol/L (21-32) Anion Gap 7 (6-14) Blood Urea Nitrogen 6 mg/dL (7-20) L Creatinine 0.7 mg/dL (0.6-1.0) Estimated GFR (Cockcroft-Gault) 100.4 BUN/Creatinine Ratio 9 (6-20) Glucose Level 93 mg/dL (70-99) Calcium Level 8.5 mg/dL (8.5-10.1) Total Bilirubin 0.2 mg/dL (0.2-1.0) Aspartate Amino Transferase (AST) 18 U/L (15-37) Alanine Aminotransferase (ALT) 37 U/L (14-59) Alkaline Phosphatase 59 U/L (46-116) Total Protein 7.4 g/dL (6.4-8.2) Albumin 3.0 g/dL (3.4-5.0) L Albumin/Globulin Ratio 0.7 (1.0-1.7) L Laboratory Tests 04/21/17 10:30 Laboratory Tests 04/21/17 10:30 EKG EKG [] Radiology/Procedures Radiology/Procedures [facility] [address] [place], [place] [id number] IMAGING REPORT Signed PATIENT: ALICIA SUTTON ACCOUNT: [id number] : 1990 LOCATION: ER AGE: 26 SEX: F EXAM STATUS: REG ER ORD. PHYSICIAN: SIOBHAN SAVAGE APRN REASON: left flank and abdominal pain PROCEDURE: CT ABDOMEN PELVIS WO CONTRAST EXAM: CT abdomen/pelvis without contrast. HISTORY: Left flank and abdominal pain. TECHNIQUE: Computed tomography of the abdomen and pelvis was performed without intravenous contrast. COMPARISON: 01/05/2017. FINDINGS: Lung windows through the visualized portions of the bases reveal a stable small pericardial effusion. Bone windows reveal no suspicious lesions. There are no renal or ureteral calculi. There is no hydronephrosis. No solid renal lesions are seen without contrast. The liver, pancreas, gallbladder, spleen and adrenal glands are unremarkable without contrast. A lymph node in the right lower quadrant mesentery measures 13 x 7 mm and is stable. The appendix is not inflamed. There is no obstruction. The uterus and ovaries are unremarkable by noncontrast CT. There is no obstruction. IMPRESSION: 1. No renal or ureteral calculi. No cause for acute pain is identified. 2. Stable small pericardial effusion. *One or more of the following individualized dose reduction techniques were utilized for this examination: 1. Automated exposure control. 2. Adjustment of the mA and/or kV according to patient size. 3. Use of iterative reconstruction technique. DICTATED and SIGNED BY: YAIR MOREAU MD DATE: 04/21/17 1000 CC: SIBOHAN SAVAGE APRN; UNKNOWN PCP NAME ~ [] Course & Med Decision Making Course & Med Decision Making Pertinent Labs and Imaging studies reviewed. (See chart for details) CBC, CMP, normal. CT scan with no changes. Urinalysis identified blood in the urine. Patient been provided with IV fluids and Toradol here in the emergency department. She has been provided with her results here in the emergency department. She be discharged home with recommendations to follow up with her primary care physician in regards to hematuria. Patient requested a work note and when she'll be provided with one day off. Recommended that she follow up with her primary care physician on Monday. Signs and symptoms return back to emergency department as been provided. Recommended Tylenol or ibuprofen for pain and discomfort. I've spoken with the patient and/or caregivers. I've explained the patient's condition, diagnosis and treatment plan based on information available to me at this time. I've answered the patient's and/or caregivers questions and addressed any concerns. The patient and/or caregivers have a good understanding the patient's diagnosis, condition and treatment plan as can be expected at this point. Vital signs have been stabilized. The patient's condition is stable for discharge from the emergency department. The patient will pursue further outpatient evaluation with her primary care provider or other designated consulting physician as outlined in the discharge instructions. Patient and/or caregivers are agreeable to this plan of care and follow-up instructions have been explained in detail. The patient and/or caregivers have received these instructions in written format and expressed understanding of these discharge instructions. The patient and her caregivers are aware that if any significant change in condition or worsening of symptoms should prompt him to immediately return to this of the closest emergency department. If an emergent department is not readily available I would encourage him to call 911. [] Dragon Disclaimer Dragon Disclaimer This electronic medical record was generated, in whole or in part, using a voice recognition dictation system. Departure Departure Impression: Primary Impression: Hematuria Disposition: HOME, SELF-CARE Condition: STABLE Referrals: UNKNOWN PCP NAME (PCP) Patient Instructions: Hematuria, Adult Additional Instructions: Activity as tolerated Tylenol or Ibuprofen for pain and discomfort Drink plenty of fluids such as water and cranberry juice Avoid cranberry juice cocktail, carbonated beverages, citrus fruits, caffeine and alcohol as these are consider irritants to the bladder Followup with your primary care provider Monday Return to emergency department as needed for signs and symptoms that become worse. Problem Qualifiers Primary Impression: Hematuria Hematuria type: unspecified type Qualified Codes: R31.9 - Hematuria, unspecified SIOBHAN SAVAGE [employer] Apr 21, 2017 09:17
[2017-04-21 09:34] LABS: BILIRUBIN,URINE NEGATIVE (NEG); GLUCOSE,URINE NEGATIVE (NEG); NITRITE,URINE NEGATIVE (NEG); PH,URINE 5.5; PROTEIN,URINE NEGATIVE (NEG-TRACE); UROBILINOGEN,URINE 0.2 mg/dL (0.2 mg/dL)
[2017-04-21 09:40] LABS: BARBITURATES NEG (NEG); BENZODIAZEPINES NEG (NEG); CANNABINOIDS NEG (NEG); COCAINE NEG (NEG); METHADONE NEG (NEG); OPIATES NEG (NEG); PHENCYCLIDINE NEG (NEG)
[2017-04-21 10:07] LABS: BACTERIA,URINE 0 /HPF (0-FEW); RBC,URINE OCC /HPF (0-2); SQUAMOUS EPITHELIAL CELL,UR FEW /LPF; WBC,URINE RARE /HPF (0-4)
--- NOTE | 2017-04-21 10:12 | RAD ---
EXAM: CT abdomen/pelvis without contrast. HISTORY: Left flank and abdominal pain. TECHNIQUE: Computed tomography of the abdomen and pelvis was performed without intravenous contrast. COMPARISON: 01/05/2017. FINDINGS: Lung windows through the visualized portions of the bases reveal a stable small pericardial effusion. Bone windows reveal no suspicious lesions. There are no renal or ureteral calculi. There is no hydronephrosis. No solid renal lesions are seen without contrast. The liver, pancreas, gallbladder, spleen and adrenal glands are unremarkable without contrast. A lymph node in the right lower quadrant mesentery measures 13 x 7 mm and is stable. The appendix is not inflamed. There is no obstruction. The uterus and ovaries are unremarkable by noncontrast CT. There is no obstruction. IMPRESSION: 1. No renal or ureteral calculi. No cause for acute pain is identified. 2. Stable small pericardial effusion. *One or more of the following individualized dose reduction techniques were utilized for this examination: 1. Automated exposure control. 2. Adjustment of the mA and/or kV according to patient size. 3. Use of iterative reconstruction technique.
[2017-04-21 10:46] LABS: BASO % 0 % (0-3); EOS % 2 % (0-3); HEMATOCRIT 35.6 % (36.0-47.0); HEMOGLOBIN 11.8 g/dL (12.0-15.5); LYMPH # 1.6 x10^3/uL (1.0-4.8); LYMPH % 24 % (24-48); MEAN CORPUSCULAR HEMOGLOBIN 29 pg (25-35); MEAN CORPUSCULAR HGB CONC 33 g/dL (31-37); MEAN CORPUSCULAR VOLUME 87 fL (79-100); MONO % 8 % (0-9); NEUT % 66 % (31-73); PLATELET COUNT 259 x10^3/uL (140-400); RED BLOOD COUNT 4.11 x10^6/uL (3.50-5.40); RED CELL DISTRIBUTION WIDTH 14.4 % (11.5-14.5); WHITE BLOOD COUNT 6.8 x10^3/uL (4.0-11.0)
[2017-04-21 10:56] LABS: CALCIUM 8.5 mg/dL (8.5-10.1); CREATININE 0.7 mg/dL (0.6-1.0); GFR 100.4
[2017-04-21 11:02] LABS: ALBUMIN/GLOBULIN RATIO 0.7 (1.0-1.7); TOTAL BILIRUBIN 0.2 mg/dL (0.2-1.0); TOTAL PROTEIN 7.4 g/dL (6.4-8.2)
== END 2017-04-21 11:18 | disposition home or self-care (01) ==
LOC: ER 08:52
DX: R31.9 Hematuria, unspecified (principal); R10.9 Unspecified abdominal pain; M54.89 Other dorsalgia; Z98.890 Other specified postprocedural states; Z88.8 Allergy status to other drugs, medicaments and biological substances
CPT/HCPCS: 36415; 74176; 80053; 80307; 81001; 81025; 85025; 96361; 96374; 96375; 99285; J1885; J2405; J7030; G0479

== ENCOUNTER 2017-10-02 11:52 | Emergency (ER) | payer OTHER ==
[2017-10-02] MEDS: KETOROLAC 60 MG/2 ML INJ. IM (14:13)
[2017-10-02] MEDS: HYDROcodone/APAP 5/325MG 1 TAB TABLET PO ×2 (14:13→19:21)
[2017-10-02 14:25] LABS: URINE HCG POC HCG NEGATIVE (Negative)
[2017-10-02 16:31] LABS: AGAP ISTAT 17 mmol/L (6-14); BUN ISTAT 7 mg/dL (8-26); CHLORIDE ISTAT 105 mmol/L (98-110); CREATININE ISTAT 0.6 mg/dL (0.5-1.4); GLUCOSE ISTAT 83 mg/dL (70-99); HEMATOCRIT ISTAT 45 % (36-40); HEMOGLOBIN ISTAT 15.3 g/dL (12-15); ION CA ISTAT 1.09 mmol/L (1.13-1.32); POTASSIUM ISTAT 4.1 mmol/L (3.5-5.0); SODIUM ISTAT 141 mmol/L (135-145); TOT CO2 ISTAT 25 mmol/L (23-32)
== END 2017-10-02 21:30 | disposition home or self-care (01) ==
LOC: ER 11:52
DX: G89.29 Other chronic pain (principal); M54.5 Low back pain; I31.3 Pericardial effusion (noninflammatory); M48.061 Spinal stenosis, lumbar region without neurogenic claudication; M47.816 Spondylosis without myelopathy or radiculopathy, lumbar region; Z88.8 Allergy status to other drugs, medicaments and biological substances
CPT/HCPCS: 36415; 72128; 72131; 80047; 81025; 84484; 85014; 85018; 93005; 93308; 96372; 99284-25; J1885

== ENCOUNTER 2018-03-11 14:24 | Emergency (ER) | payer OTHER ==
[~2018-03-11] VITALS: Ht 160 cm; Wt 95.3 kg
[~2018-03-11 14:24] MED LIST changes: +NAPR-683 PO; -NAPR500T PO
[2018-03-11 15:05] VITALS: BP 127/58
[2018-03-11] MEDS ORDERED: ORPHENADRINE CITRATE 60 MG/2 ML VIAL. IM ONE (15:45)
[2018-03-11] MEDS ORDERED: KETOROLAC 60 MG/2 ML INJ. IM ONE (15:45)
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
[2018-03-11 16:48] LABS: U PREG PATIENT NEGATIVE (NEG)
[2018-03-11 16:50] LABS: AMPHETAMINE/METHAMPHETAMINE NEG (NEG); BACTERIA,URINE MANY /HPF (0-FEW); BARBITURATES NEG (NEG); BENZODIAZEPINES NEG (NEG); BILIRUBIN,URINE NEGATIVE (NEG); CLARITY,URINE CLEAR; COLOR,URINE YELLOW; NITRITE,URINE NEGATIVE (NEG); PROTEIN,URINE NEGATIVE (NEG-TRACE); RBC,URINE 0 /HPF (0-2); SQUAMOUS EPITHELIAL CELL,UR MANY /LPF
[2018-03-11 16:51] LABS: CANNABINOIDS NEG (NEG); COCAINE NEG (NEG); METHADONE NEG (NEG); OPIATES NEG (NEG); PHENCYCLIDINE NEG (NEG)
[2018-03-11] MEDS ORDERED: ORPH100T PO (17:15)
[2018-03-11] MEDS ORDERED: IBUP-1007 PO (17:15)
== END 2018-03-11 17:42 | disposition home or self-care (01) ==
LOC: ER 14:24
DX: G89.29 Other chronic pain (principal); M54.9 Dorsalgia, unspecified; Z91.048 Other nonmedicinal substance allergy status
CPT/HCPCS: 72128; 72131; 80307; 81001; 81025; 87086; 96372; 99284; J1885; J2360; G0479

== ENCOUNTER 2018-04-16 18:13 | Emergency (ER) | payer OTHER ==
[~2018-04-16 18:13] MED LIST changes: +HYDR-3164 PO; -HYDR-971 PO; +ORPH100T PO
== END 2018-04-16 19:05 | disposition left against medical advice (07) ==
LOC: ER 18:13
DX: J02.9 Acute pharyngitis, unspecified (principal); Z53.21 Procedure and treatment not carried out due to patient leaving prior to being seen by health care provider

== ENCOUNTER 2018-07-17 19:53 | Emergency (ER) | payer OTHER ==
[~2018-07-17] VITALS: Ht 160 cm; Wt 95.3 kg
[2018-07-17 20:37] LABS: BASO # 0.1 x10^3/uL (0.0-0.2); BASO % 1 % (0-3); EOS # 0.1 x10^3/uL (0.0-0.7); EOS % 1 % (0-3); HEMATOCRIT 37.8 % (36.0-47.0); HEMOGLOBIN 12.2 g/dL (12.0-15.5); LYMPH % 27 % (24-48); MEAN CORPUSCULAR HEMOGLOBIN 29 pg (25-35); MEAN CORPUSCULAR HGB CONC 32 g/dL (31-37); MEAN CORPUSCULAR VOLUME 90 fL (79-100); MONO # 0.8 x10^3/uL (0.0-1.1); MONO % 7 % (0-9); NEUT # 7.3 x10^3uL (1.8-7.7); NEUT % 65 % (31-73); PLATELET COUNT 311 x10^3/uL (140-400); RED BLOOD COUNT 4.21 x10^6/uL (3.50-5.40); RED CELL DISTRIBUTION WIDTH 15.9 % (11.5-14.5); WHITE BLOOD COUNT 11.2 x10^3/uL (4.0-11.0)
[2018-07-17 20:46] LABS: PROTHROMBIN TIME PATIENT 12.6 SEC (11.7-14.0)
[2018-07-17 20:48] LABS: CALCIUM 8.8 mg/dL (8.5-10.1); CREATININE 0.8 mg/dL (0.6-1.0); GFR 84.8; POTASSIUM 3.4 mmol/L (3.5-5.1)
[2018-07-17 20:54] LABS: ALBUMIN 3.3 g/dL (3.4-5.0); ALBUMIN/GLOBULIN RATIO 0.8 (1.0-1.7); TOTAL BILIRUBIN 0.2 mg/dL (0.2-1.0); TOTAL PROTEIN 7.3 g/dL (6.4-8.2)
[2018-07-17] MEDS ORDERED: ONDANSETRON PF 4 MG/2 ML VIAL. IV ONE (21:00)
[2018-07-17] MEDS ORDERED: IV NORMAL SALINE 1000ML BAG 1,000 ML IV ONE (21:00)
[2018-07-17] MEDS ORDERED: fentaNYL PF VIAL 100 MCG/2 ML VIAL IV ONE (21:00)
[2018-07-17 21:02] LABS: D-DIMER 0.72 ug/mlFEU (0.00-0.50)
[2018-07-17 21:37] LABS: BILIRUBIN,URINE NEGATIVE (NEG); CLARITY,URINE CLEAR; COLOR,URINE YELLOW; NITRITE,URINE NEGATIVE (NEG); PH,URINE 6.5; PROTEIN,URINE NEGATIVE (NEG-TRACE); UROBILINOGEN,URINE 0.2 mg/dL (0.2 mg/dL)
[2018-07-17 21:42] LABS: BACTERIA,URINE FEW /HPF (0-FEW); RBC,URINE 0 /HPF (0-2); SQUAMOUS EPITHELIAL CELL,UR MOD /LPF; WBC,URINE OCC /HPF (0-4)
--- NOTE | 2018-07-17 21:54 | RAD ---
Chest radiograph 07/17/2018 9:24 PM INDICATION: Chest pain COMPARISON: None available TECHNIQUE: Portable upright frontal view of the chest is provided. FINDINGS: The cardiomediastinal silhouette is within normal limits. There are no pleural effusions. There is no pulmonary vascular congestion. There is no pneumothorax. The lungs are clear. No significant osseous abnormality is identified. IMPRESSION: No acute cardiopulmonary process. Electronically signed by: Crystal Retana MD (07/17/2018 9:51 PM) [facility]
[2018-07-17 22:26] VITALS: BP 109/69
[2018-07-17] MEDS ORDERED: CONTRAST GIVEN. MC PRN (22:45)
[2018-07-17] MEDS ORDERED: IOHEXOL 350 MG/ML 100 ML VIAL. IV ONE (23:00)
--- NOTE | 2018-07-17 23:12 | RAD ---
PQRS Compliance Statement: One or more of the following individualized dose reduction techniques were utilized for this examination: 1. Automated exposure control 2. Adjustment of the mA and/or kV according to patient size 3. Use of iterative reconstruction technique CT angiography chest with contrast 07/17/2018 10:[address] abdomen/pelvis with contrast INDICATION: Chest pain, history of recent DVT. Elevated d-dimer. Abdominal pain for a few days. COMPARISON: CT abdomen/pelvis April 21, 2017 TECHNIQUE: Axial CT images of the chest, abdomen and pelvis were obtained after the intravenous administration of nonionic contrast. Coronal and sagittal reformats are provided. Maximum intensity projection images of the thoracic vasculature are provided. FINDINGS: CHEST: The thyroid gland is normal in appearance. There are no pathologically enlarged axillary, mediastinal or hilar lymph nodes. The heart size is within normal limits. No significant pericardial effusion. Thoracic aorta is normal in course and caliber. There is adequate opacification of the pulmonary arterial system. There there are no filling defects within the pulmonary arterial system to suggest acute or chronic pulmonary embolus. There are no suspicious solid noncalcified pulmonary nodules. There are no pulmonary infiltrates. There are no pleural effusions. No pulmonary vascular congestion or pneumothorax. Visualized portions of the upper abdomen are within normal limits. No suspicious osseous lesions are visualized. ABDOMEN/PELVIS: Liver, spleen, bilateral adrenal glands, pancreas and gallbladder are normal in appearance. The abdominal aorta is normal in course and caliber. There are no pathologically enlarged lymph nodes in the abdomen and pelvis. There is no abdominal free fluid. There is no free intraperitoneal air. The kidneys enhance symmetrically. There is no suspicious renal mass. There is no hydronephrosis. There are no suspected calculi within the kidneys, ureters or urinary bladder. Small and large bowel are normal in caliber. There is no evidence for bowel obstruction. There are no pericolonic inflammatory changes. Appendix is not definitively visualized. The urinary bladder is within normal limits given degree of distention. Uterus and adnexa are within normal limits. No suspicious pelvic masses are identified. There are no suspicious osseous lesions identified. IMPRESSION: There is no evidence for acute or chronic pulmonary embolism. No suspicious abnormality is identified in the abdomen and pelvis. Electronically signed by: Crystal Retana MD (07/17/2018 11:09 PM) [facility]
--- NOTE | 2018-07-17 23:34 | PHYS DOC ---
Past Medical History Past Medical History: Other Additional Past Medical Histor: Ovarian cyst. CHRONIC BACK PAIN Past Surgical History: Additional Past Surgical Histo: [place] teeth removed. Alcohol Use: Occasionally Drug Use: None Adult General Chief Complaint Chief Complaint: CHEST PAIN HPI HPI Patient is a 28 year old F WITH CC OF allwith multiple complaints. Patient apparently has been having abdominal pain cramping intermittent sharp radius to the chest also chest pain and shortness of breath and also headache All symptoms ongoing for 1 week and slowly worsening she does have a history of chronic abdominal pain but this seems worse. Review of Systems Review of Systems Constitutional: Denies fever or chills [] Eyes: Denies change in visual acuity, redness, or eye pain [] HENT: Denies nasal congestion or sore throat [] Respiratory: Denies cough Musculoskeletal: Denies back pain or joint pain [] Neurologic: Denies , focal weakness or sensory changes [] All other systems were reviewed and found to be within normal limits, except as documented in this note. Current Medications Current Medications Current Medications Medications (Trade) Dose Ordered Sig/Shruthi Start Time Stop Time Status Last Admin Dose Admin Fentanyl Citrate (Fentanyl 2ml Vial) 50 mcg 1X ONCE 07/17/18 21:00 07/17/18 21:01 DC 07/17/18 20:47 50 MCG Info (CONTRAST GIVEN -- Rx MONITORING) 1 each PRN DAILY PRN 07/17/18 22:45 07/19/18 22:44 Iohexol (Omnipaque 350 Mg/ml) 75 ml 1X ONCE 07/17/18 23:00 07/17/18 23:01 DC 07/17/18 22:54 75 ML Ondansetron HCl (Zofran) 4 mg 1X ONCE 07/17/18 21:00 07/17/18 21:01 DC 07/17/18 20:47 4 MG Sodium Chloride 1,000 ml @ 1,000 mls/hr 1X ONCE 07/17/18 21:00 07/17/18 21:59 DC 07/17/18 20:47 1,000 MLS/HR Allergies Allergies Allergies Coded Allergies Type Severity Reaction Last Updated Verified adhesive Allergy Intermediate REDNESS, RASH 12/17/15 Yes Physical Exam Physical Exam Constitutional: Well developed, well nourished, no acute distress, non-toxic appearance. [] HENT: Normocephalic, atraumatic, bilateral external ears normal, oropharynx moist, no oral exudates, nose normal. [] Eyes: PERRLA, EOMI, conjunctiva normal, no discharge. [] Neck: Normal range of motion, no tenderness, supple, no stridor. [] Cardiovascular:Heart rate regular rhythm, no murmur [] Lungs & Thorax: Bilateral breath sounds clear to auscultation [] Abdomen: Bowel sounds normal, soft, MILD NONSPECIFIC tenderness, no masses, no pulsatile masses. [] Skin: Warm, dry, no erythema, no rash. [] Back: No tenderness, no CVA tenderness. [] Extremities: No tenderness, no cyanosis, no clubbing, ROM intact, no edema. [] Neurologic: Alert and oriented X 3, normal motor function, normal sensory function, no focal deficits noted. [] Psychologic: Affect normal, judgement normal, mood normal. [] Current Patient Data Vital Signs Vital Signs Date Time Temp Pulse Resp B/P (MAP) Pulse Ox O2 Delivery O2 Flow Rate FiO2 07/17/18 21:56 74 118/60 (79) 98 Room Air 07/17/18 19:55 98.2 16 98.2 Lab Values Laboratory Tests Test 07/17/18 20:00 07/17/18 21:28 07/17/18 21:30 White Blood Count 11.2 x10^3/uL (4.0-11.0) H Red Blood Count 4.21 x10^6/uL (3.50-5.40) Hemoglobin 12.2 g/dL (12.0-15.5) Hematocrit 37.8 % (36.0-47.0) Mean Corpuscular Volume 90 fL (79-100) Mean Corpuscular Hemoglobin 29 pg (25-35) Mean Corpuscular Hemoglobin Concent 32 g/dL (31-37) Red Cell Distribution Width 15.9 % (11.5-14.5) H Platelet Count 311 x10^3/uL (140-400) Neutrophils (%) (Auto) 65 % (31-73) Lymphocytes (%) (Auto) 27 % (24-48) Monocytes (%) (Auto) 7 % (0-9) Eosinophils (%) (Auto) 1 % (0-3) Basophils (%) (Auto) 1 % (0-3) Neutrophils # (Auto) 7.3 x10^3uL (1.8-7.7) Lymphocytes # (Auto) 3.0 x10^3/uL (1.0-4.8) Monocytes # (Auto) 0.8 x10^3/uL (0.0-1.1) Eosinophils # (Auto) 0.1 x10^3/uL (0.0-0.7) Basophils # (Auto) 0.1 x10^3/uL (0.0-0.2) Prothrombin Time 12.6 SEC (11.7-14.0) Prothrombin Time INR 1.0 (0.8-1.1) D-Dimer (Briana) 0.72 ug/mlFEU (0.00-0.50) H Sodium Level 141 mmol/L (136-145) Potassium Level 3.4 mmol/L (3.5-5.1) L Chloride Level 105 mmol/L (98-107) Carbon Dioxide Level 24 mmol/L (21-32) Anion Gap 12 (6-14) Blood Urea Nitrogen 12 mg/dL (7-20) Creatinine 0.8 mg/dL (0.6-1.0) Estimated GFR (Cockcroft-Gault) 84.8 BUN/Creatinine Ratio 15 (6-20) Glucose Level 90 mg/dL (70-99) Calcium Level 8.8 mg/dL (8.5-10.1) Total Bilirubin 0.2 mg/dL (0.2-1.0) Aspartate Amino Transferase (AST) 13 U/L (15-37) L Alanine Aminotransferase (ALT) 22 U/L (14-59) Alkaline Phosphatase 69 U/L (46-116) Troponin I Quantitative < 0.017 ng/mL (0.000-0.055) QU-Qja-O-Type Natriuretic Peptide 48 pg/mL (0-124) Total Protein 7.3 g/dL (6.4-8.2) Albumin 3.3 g/dL (3.4-5.0) L Albumin/Globulin Ratio 0.8 (1.0-1.7) L Lipase 149 U/L (73-393) Urine Collection Type Unknown Urine Color Yellow Urine Clarity Clear Urine pH 6.5 Urine Specific [place] 1.015 Urine Protein Negative mg/dL (NEG-TRACE) Urine Glucose (UA) Negative mg/dL (NEG) Urine Ketones (Stick) Negative mg/dL (NEG) Urine Blood Negative (NEG) Urine Nitrite Negative (NEG) Urine Bilirubin Negative (NEG) Urine Urobilinogen Dipstick 0.2 mg/dL (0.2 mg/dL) Urine Leukocyte Esterase Negative (NEG) Urine RBC 0 /HPF (0-2) Urine WBC Occ /HPF (0-4) Urine Squamous Epithelial Cells Mod /LPF Urine Bacteria Few /HPF (0-FEW) Urine Mucus Slight /LPF POC Urine HCG, Qualitative Hcg negative (Negative) Laboratory Tests 07/17/18 20:00 Laboratory Tests 07/17/18 20:00 EKG EKG []Normal sinus rhythm rate of 83 no acute ischemic changes noted interpreted by me the time of encounter. Radiology/Procedures Radiology/Procedures [] Impressions: IMPRESSION: There is no evidence for acute or chronic pulmonary embolism. No suspicious abnormality is identified in the abdomen and pelvis. Electronically signed by: Lucy Retana MD (07/17/2018 11:09 PM) [facility] DICTATED and SIGNED BY: LCUY RETANA MD DATE: 07/17/18 1883 Course & Med Decision Making Course & Med Decision Making Pertinent Labs and Imaging studies reviewed. (See chart for details) 28 YO F O with history of chronic abdominal pain apparently was admitted a couple months back at [facility] apparently she had pneumonia and flu at the same time she had a PICC line she had superficial thrombophlebitis SHE WAS on anticoag for one camelia now with multilpe symptoms cp, h/a, abdo pain nausea no focal findings. did ddimer level due to hx of thrombophlebitis per her report (i sent for records but they never came during er course), did ct scan, neg acute. neuro intact. safe for d/c home suspect chronic component to these symptoms pt was reassured [] Dragon Disclaimer Dragon Disclaimer This electronic medical record was generated, in whole or in part, using a voice recognition dictation system. Departure Departure Impression: Primary Impression: Nausea & vomiting Additional Impressions: Chest pain Chronic abdominal pain Disposition: HOME, SELF-CARE Condition: STABLE Referrals: UNKNOWN PCP NAME (PCP) Patient Instructions: Nausea and Vomiting, [id number] Problem Qualifiers ERIK SAMUELS MD Jul 17, 2018 23:34
--- NOTE | 2018-07-18 09:12 | EKG ---
[facility] [address] [place] [address] Test Date: 2018-07-17 Test Time: 20:01:40 Pat Name: ALICIA SUTTON Department: Room: Gender: F Pit Steward: : 1990 Requested By: ERIK SAMUELS Order Number: [id number] Reading MD: Anuj Caballero Measurements Intervals [place] Rate: 83 P: 41 [place]: 140 QRS: 51 QRSD: 84 T: 32 QT: 354 QTc: 421 Interpretive Statements SINUS RHYTHM NORMAL ECG Electronically Signed On 07-18-2018 9:14:23 FIELD APPLICATION ENGINEER by Anuj Caballero
== END 2018-07-17 23:44 | disposition home or self-care (01) ==
LOC: ER 19:53
DX: R11.2 Nausea with vomiting, unspecified (principal); R07.9 Chest pain, unspecified; G89.29 Other chronic pain; R10.9 Unspecified abdominal pain; Z88.8 Allergy status to other drugs, medicaments and biological substances
CPT/HCPCS: 36415; 71045; 71275; 74177; 80053; 81001; 81025; 83690; 83880; 84484; 85025; 85379; 85610; 93005; 96361; 96374; 96375; 99284; J2405; J3010; J7030; Q9967

== ENCOUNTER 2018-11-17 20:56 | Emergency (ER) | payer OTHER ==
[~2018-11-17] VITALS: Ht 160 cm; Wt 96.6 kg
[2018-11-17 22:10] LABS: BASO # 0.1 x10^3/uL (0.0-0.2); BASO % 1 % (0-3); EOS # 0.2 x10^3/uL (0.0-0.7); EOS % 2 % (0-3); HEMATOCRIT 37.8 % (36.0-47.0); HEMOGLOBIN 12.5 g/dL (12.0-15.5); LYMPH # 2.6 x10^3/uL (1.0-4.8); LYMPH % 27 % (24-48); MEAN CORPUSCULAR HEMOGLOBIN 28 pg (25-35); MEAN CORPUSCULAR HGB CONC 33 g/dL (31-37); MEAN CORPUSCULAR VOLUME 86 fL (79-100); MONO # 0.8 x10^3/uL (0.0-1.1); MONO % 9 % (0-9); NEUT % 63 % (31-73); PLATELET COUNT 295 x10^3/uL (140-400); RED BLOOD COUNT 4.41 x10^6/uL (3.50-5.40); RED CELL DISTRIBUTION WIDTH 15.5 % (11.5-14.5); WHITE BLOOD COUNT 9.7 x10^3/uL (4.0-11.0)
[2018-11-17 22:35] LABS: BILIRUBIN,URINE NEGATIVE (NEG); CLARITY,URINE CLEAR; COLOR,URINE YELLOW
[2018-11-17 22:36] LABS: BACTERIA,URINE FEW /HPF (0-FEW); NITRITE,URINE NEGATIVE (NEG); PROTEIN,URINE NEGATIVE (NEG-TRACE); RBC,URINE 20-40 /HPF (0-2); WBC,URINE OCC /HPF (0-4)
[2018-11-17 22:37] LABS: SQUAMOUS EPITHELIAL CELL,UR MOD /LPF
[2018-11-17 23:10] VITALS: BP 117/63
--- NOTE | 2018-11-17 23:26 | PHYS DOC ---
Past Medical History Past Medical History: Other Additional Past Medical Histor: Ovarian cyst. CHRONIC BACK PAIN (KEESHA HARDY APRN) Past Surgical History: Additional Past Surgical Histo: [place] teeth removed. (KEESHA HARDY APRN) Alcohol Use: Occasionally Drug Use: None (KEESHA HARDY APRN) Adult General Chief Complaint Chief Complaint: VAGINAL BLEEDING HPI HPI Patient is a 28 year old female who presents to the emergency Department today with reports of vaginal bleeding for the last 3 or 4 days. Patient states she is , 2, para 1. Her last menstrual period was on September 292018 she does not know her due date yet. Patient states that on the first day that leading was heavier and since has been light. 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 She reports lower abdominal cramping at this time, she has not taken anything for her pain. (KEESHA HARDY APRN) Review of Systems Review of Systems Constitutional: Denies fever or chills [] Eyes: Denies change in visual acuity, redness, or eye pain [] HENT: Denies nasal congestion or sore throat [] Respiratory: Denies cough or shortness of breath [] Cardiovascular: No additional information not addressed in HPI [] GI: Denies nausea, vomiting,or diarrhea; see HPI [] : Denies dysuria or hematuria; see HPI [] Musculoskeletal: Denies back pain Integument: Denies rash or skin lesions [] Neurologic: Denies headache, focal weakness or sensory changes [] Complete systems were reviewed and found to be within normal limits, except as documented in this note. (KEESHA HARDY APRN) Allergies Allergies Allergies Coded Allergies Type Severity Reaction Last Updated Verified adhesive Allergy Intermediate REDNESS, RASH 12/17/15 Yes (ERIK SAMUELS MD) Physical Exam Physical Exam Constitutional: Well developed, well nourished, no acute distress, non-toxic appearance, obese. [] HENT: Normocephalic, atraumatic, bilateral external ears normal, oropharynx moist, nose normal. [] Eyes: conjunctiva normal, no discharge. [] Neck: Normal range of motion, no stridor. [] Cardiovascular:Heart rate regular rhythm Lungs & Thorax: Respirations even and unlabored, no retractions, no respiratory distress Pelvic Exam: Machinist Mechanic alivia Bernard RN Abdomen: Nontender, soft External Genitalia: Normal Skin Speculum: Normal vaginal mucosa, light amount of dark bloody cervical discharge Skin: Warm, dry, no erythema, no rash. [] Extremities: No cyanosis, , ROM intact, no edema. [] Neurologic: Alert and oriented X 3, no focal deficits noted. [] Psychologic: Affect normal, judgement normal, mood normal. [] (KEESHA HARDY APRN) Current Patient Data Vital Signs Vital Signs Date Time Temp Pulse Resp B/P (MAP) Pulse Ox O2 Delivery O2 Flow Rate FiO2 11/17/18 21:32 99.0 78 18 139/81 (100) 100 Room Air 99.0 (ERIK SAMUELS MD) Lab Values Laboratory Tests Test 11/17/18 21:05 11/17/18 21:07 11/17/18 21:45 Urine Collection Type Unknown Urine Color Yellow Urine Clarity Clear Urine pH 6.0 Urine Specific [place] 1.025 Urine Protein Negative mg/dL (NEG-TRACE) Urine Glucose (UA) Negative mg/dL (NEG) Urine Ketones (Stick) Negative mg/dL (NEG) Urine Blood Large (NEG) Urine Nitrite Negative (NEG) Urine Bilirubin Negative (NEG) Urine Urobilinogen Dipstick 1.0 mg/dL (0.2 mg/dL) Urine Leukocyte Esterase Negative (NEG) Urine RBC 20-40 /HPF (0-2) Urine WBC Occ /HPF (0-4) Urine Squamous Epithelial Cells Mod /LPF Urine Bacteria Few /HPF (0-FEW) POC Urine HCG, Qualitative Hcg positive (Negative) White Blood Count 9.7 x10^3/uL (4.0-11.0) Red Blood Count 4.41 x10^6/uL (3.50-5.40) Hemoglobin 12.5 g/dL (12.0-15.5) Hematocrit 37.8 % (36.0-47.0) Mean Corpuscular Volume 86 fL (79-100) Mean Corpuscular Hemoglobin 28 pg (25-35) Mean Corpuscular Hemoglobin Concent 33 g/dL (31-37) Red Cell Distribution Width 15.5 % (11.5-14.5) H Platelet Count 295 x10^3/uL (140-400) Neutrophils (%) (Auto) 63 % (31-73) Lymphocytes (%) (Auto) 27 % (24-48) Monocytes (%) (Auto) 9 % (0-9) Eosinophils (%) (Auto) 2 % (0-3) Basophils (%) (Auto) 1 % (0-3) Neutrophils # (Auto) 6.0 x10^3uL (1.8-7.7) Lymphocytes # (Auto) 2.6 x10^3/uL (1.0-4.8) Monocytes # (Auto) 0.8 x10^3/uL (0.0-1.1) Eosinophils # (Auto) 0.2 x10^3/uL (0.0-0.7) Basophils # (Auto) 0.1 x10^3/uL (0.0-0.2) Maternal Serum HCG Beta Subunit 1462 mIU/mL (0-5) H Laboratory Tests 11/17/18 21:45 (ERIK SAMUELS MD) EKG EKG [] (KEESHA HARDY APRN) Radiology/Procedures Radiology/Procedures Rh+ history per lab PROCEDURE: OB <14 WKS W/TV Obstetric pelvic ultrasound 11/18/2018 INDICATION: Vaginal bleeding in early . COMPARISON: Ultrasound pelvis February 13, 2017 TECHNIQUE: Sonographic evaluation of the pelvis was performed utilizing grayscale and color Doppler. Transabdominal and transvaginal imaging was performed. FINDINGS: The uterus measures 9.4 x 6.0 x 3.7 cm. Gestational sac and ureters secondary visualized. pole is not visualized. Single intrauterine gestation is visualized with mean sac diameter measuring 0.7 cm compatible with a gestational age of 5 weeks 3 days. Sonographic EDC is 07/17/2019. Right ovary measures 2.1 x 2.2 x 2.3 cm. Left ovary measures 3.2 x 2.7 x 3.0 cm. There is a cyst in the left ovary measuring 2.3 x 2.3 x 2.4 cm with minimal internal echoes. There is no free fluid within the pelvis. IMPRESSION: 1. Single intrauterine gestation is visualized with mean sac diameter compatible with a gestational age of 5 weeks 3 days. Findings most favor early . However, if there is persistent clinical concern, recommend short-term follow-up beta hCG and pelvic ultrasound. 2. Suspected corpus luteal cyst in the left ovary measuring 2.4 cm.[] (KEESHA HARDY APRN) Course & Med Decision Making Course & Med Decision Making Pertinent Labs and Imaging studies reviewed. (See chart for details) dx: vaginal bleeding in early , threatened miscarriage. ddx: tubal HCG level was 1462 U/S revealed: 1. Single intrauterine gestation is visualized with mean sac diameter compatible with a gestational age of 5 weeks 3 days. Findings most favor early . However, if there is persistent clinical concern, recommend short-term follow-up beta hCG and pelvic ultrasound. 2. Suspected corpus luteal cyst in the left ovary measuring 2.4 cm. Follow up with OBGyn in 2 days to repeat HCG level. Return to the ER if symptoms worsen Patient verbalized an understanding of home care, medications, follow-up, and return to ED instructions and was in agreement with the plan of care. [] (KEESHA HARDY APRN) Course & Med Decision Making Staff Physician Addendum: I was working in the ER during the course of this patient's visit. I was available for consultation as needed, but I was not directly involved in the care of this patient. (ERIK SAMUELS MD) Dragon Disclaimer Dragon Disclaimer This electronic medical record was generated, in whole or in part, using a voice recognition dictation system. (KEESHA HARDY APRN) Departure Departure Impression: Primary Impression: Vaginal bleeding before 22 weeks gestation Additional Impression: Threatened miscarriage in early Disposition: HOME, SELF-CARE Condition: STABLE Referrals: UNKNOWN PCP NAME (PCP) Patient Instructions: Threatened Miscarriage, [id number] Additional Instructions: Pelvic rest until cleared by OBGyn. Follow up with your OBGyn in 2 days to repeat your HCG level, today it was 1462. Return to the ER if symptoms worsen Problem Qualifiers KEESHA HARDY APRN Nov 17, 2018 23:26 ERIK SAMUELS MD Nov 18, 2018 03:13
--- NOTE | 2018-11-18 00:39 | RAD ---
Obstetric pelvic ultrasound 11/18/2018 INDICATION: Vaginal bleeding in early . COMPARISON: Ultrasound pelvis February 13, 2017 TECHNIQUE: Sonographic evaluation of the pelvis was performed utilizing grayscale and color Doppler. Transabdominal and transvaginal imaging was performed. FINDINGS: The uterus measures 9.4 x 6.0 x 3.7 cm. Gestational sac and ureters secondary visualized. pole is not visualized. Single intrauterine gestation is visualized with mean sac diameter measuring 0.7 cm compatible with a gestational age of 5 weeks 3 days. Sonographic EDC is 07/17/2019. Right ovary measures 2.1 x 2.2 x 2.3 cm. Left ovary measures 3.2 x 2.7 x 3.0 cm. There is a cyst in the left ovary measuring 2.3 x 2.3 x 2.4 cm with minimal internal echoes. There is no free fluid within the pelvis. IMPRESSION: 1. Single intrauterine gestation is visualized with mean sac diameter compatible with a gestational age of 5 weeks 3 days. Findings most favor early . However, if there is persistent clinical concern, recommend short-term follow-up beta hCG and pelvic ultrasound. 2. Suspected corpus luteal cyst in the left ovary measuring 2.4 cm. Electronically signed by: Crystal Retana MD (11/18/2018 12:36 AM) [id number]
== END 2018-11-18 01:10 | disposition home or self-care (01) ==
LOC: ER 20:56
DX: O20.0 Threatened abortion (principal); Z88.8 Allergy status to other drugs, medicaments and biological substances; Z3A.01 Less than 8 weeks gestation of pregnancy
CPT/HCPCS: 36415; 76801; 76817; 81001; 81025; 84702; 85025; 99285-25

== ENCOUNTER → 2021-03-09 | Outpatient (CLI) | payer OTHER | LOC: PF 07:54 | PROVIDERS: ATTEND Family Medicine | DX: Z02.71 Encounter for disability determination (principal); J45.909 Unspecified asthma, uncomplicated | CPT/HCPCS: 94060; 94640; 94664 ==